=== PATIENT | male | born 1975 | race Caucasian/White ===

== ENCOUNTER 2019-11-23 14:23 | Outpatient (CLI) | payer OTHER, SELFPAY ==
--- NOTE | 2019-11-23 14:33 | XR_ITS ---
WS: [id number] CHEST 2 VIEWS HISTORY: TOBACCO USE, COUGH, DYSPNEA COMPARISON: 09/03/2019 Lungs: Mild pulmonary hyperexpansion. Mild biapical pleural thickening is similar to prior studies. N o pneumonia. Improved aeration at the LEFT lung base. Cardiac size: Normal. Mediastinum/Aorta: Normal mediastinum. Bones: Normal. XR/XR chest 2V* [id number] IMPRESSION: 1. Chronic emphysema. 2. Resolved LEFT lower lobe pneumonitis.
== END 2019-11-23 14:24 | disposition home or self-care (01) ==
LOC: RADWPI 14:28
PROVIDERS: PCP Nurse Practitioner Family; Visit Provider Nurse Practitioner Family
DX: J43.9 Emphysema, unspecified (principal); R06.00 Dyspnea, unspecified; R05 Cough; F17.200 Nicotine dependence, unspecified, uncomplicated
CPT/HCPCS: 71046

== ENCOUNTER → 2020-09-10 18:18 | Outpatient (BNVA) | payer OTHER, SELFPAY | PROVIDERS: PCP Nurse Practitioner Family; Visit Provider Family Medicine | DX: Z20.828 Contact with and (suspected) exposure to other viral communicable diseases (principal) | CPT/HCPCS: 87635 ==

== ENCOUNTER 2020-09-15 08:57 | Outpatient (CLI) | payer OTHER, SELFPAY ==
--- NOTE | 2020-09-15 09:15 | PFTS_ITS ---
Date of Study:09/15/20 Date of Dictation: MECHANICS: Forced vital capacity (FVC) is reduced. Forced expiratory volume in one second (FEV1) is reduced. FEV1/FVC is reduced. FLOW VOLUME LOOP: Reduced flow at all lung volumes. LUNG VOLUMES: Not measured DIFFUSING CAPACITY FOR CARBON MONOXIDE: Not measured. INTERPRETATION: The postbronchodilator spirometry is consistent with moderate airflow obstruction. There is a significant postbronchodilator response. Lung volumes and gas exchange were not measured. MTDD
== END 2020-09-15 08:58 | disposition home or self-care (01) ==
LOC: RT 08:58
PROVIDERS: PCP Nurse Practitioner Family; Visit Provider Family Medicine
DX: R06.00 Dyspnea, unspecified (principal)
CPT/HCPCS: 94060; J7611

== ENCOUNTER 2020-11-14 09:36 | Outpatient (CLI) | payer OTHER, SELFPAY ==
--- NOTE | 2020-11-14 09:49 | CT_ITS ---
WS: [id number] CT NECK WITHOUT CONTRAST. HISTORY: Shortness of breath TECHNIQUE: Contiguous 5 mm axial images are performed through the neck without intravenous contrast. Sagittal and coronal reformats are also submitted. All CT scans at [facility] use at leas t one of these dose optimization techniques: automated exposure control; mA and/or kV adjustment per patient size (includes targeted exams where dose is matched to clinical indication); or iterative rec onstruction. CONTRAST: CONTRAST: None DLP: 2407.45 mGycm COMPARISON: 02/24/2016 No narrowing or strictures noted within the oropharynx or nasopharynx or through the hypopharynx or l arynx. Subglottic airway is normal. Visualized trachea is normal caliber. Nasopharynx, oropharynx, hypopharynx and larynx are unremarkable. No soft tissue masses or abnormal e nhancement. Torus tubarius and fossa of Rosenmuller and parapharyngeal fat are normal. Numerous small benign cervical chain lymph nodes. No enlarged lymph nodes. The appearance of the lymp h nodes is similar to the prior study of 02/24/2016. Thyroid gland and salivary glands are normally enhancing with no masses. No osseous abnormalities. Visualized portions of the skull base demonstrate no abnormalities. Orbits and globes are within norm al limits. No soft tissue masses. Visualized paranasal sinuses and mastoid air cells are normal. Lung apices are clear. CT/CT neck wo con [id number] IMPRESSION: 1. No strictures or narrowing of the airway from the nasopharynx through the t rachea. 2. Numerous subcentimeter cervical chain lymph nodes. No enlargement or change in size since 02/24/2016.
--- NOTE | 2020-11-14 10:00 | CT_ITS ---
WS: [id number] CT CHEST WITHOUT INTRAVENOUS CONTRAST HISTORY: Shortness of breath TECHNIQUE: Contiguous 5 mm axial imaging performed on the thorax. Coronal and sagittal reformats are submitted. All CT scans at [facility] use at least one of these dose optimization techniq ues: automated exposure control; mA and/or kV adjustment per patient size (includes targeted exams wh ere dose is matched to clinical indication); or iterative reconstruction. CONTRAST: None DLP: 613.9 mGycm COMPARISON: None available. Lungs and central airway: Biapical pleural thickening and fibrosis. Micronodule superior RIGHT apex. Subpleural nodule measuring 2 mm anterior RIGHT upper lobe. There are several subpleural micronodules present bilaterally. 6 mm noncalcified nodule along the minor fissure. 4 mm noncalcified nodule RIGH T middle lobe, image 37 of series 3. Pleura: Normal. No pleural effusion. Heart and pericardium: Normal size heart with no pericardial effusion. Mediastinum and sonny: Benign appearing axillary mediastinal lymph nodes. No adenopathy identified on this unenhanced study. Vessels: Normal size aortic and pulmonary artery. No coronary artery calcifications. Chest wall and lower neck: No soft tissue masses. Upper abdomen: Negative. Osseous structures: No destructive process. CT/CT chest wo con [id number] IMPRESSION: 1. Chronic emphysema. No pneumonia. 2. Multiple micronodules and a few scattered 4 to 6 mm nodules. The largest no dule along the RIGHT minor fissure and in the RIGHT middle lobe. Recommend foll ow-up chest CT in 6-12 months.
== END 2020-11-14 09:37 | disposition home or self-care (01) ==
LOC: RADWPI 09:38
PROVIDERS: PCP Nurse Practitioner Family; Visit Provider Internal Medicine Critical Care Medicine
DX: R06.02 Shortness of breath (principal); J43.9 Emphysema, unspecified; R91.8 Other nonspecific abnormal finding of lung field
CPT/HCPCS: 70490; 71250

== ENCOUNTER → 2020-11-26 13:05 | Outpatient (BNVA) | payer OTHER, SELFPAY | PROVIDERS: PCP Nurse Practitioner Family | DX: Z20.828 Contact with and (suspected) exposure to other viral communicable diseases (principal) | CPT/HCPCS: 87635 ==

== ENCOUNTER 2022-01-11 09:58 | Outpatient (CLI) | payer OTHER, SELFPAY ==
--- NOTE | 2022-01-11 10:30 | CT_ITS ---
WS: [id number] CT CHEST TECHNIQUE: Noncontrast CT of the chest with coronal and sagittal reformatted images. CLINICAL INFORMATION: Lung Nodule COMPARISON: CT November 14, 2020 DLP: 585.[address] scans at [facility] use at least one of these dose optimization techniques: automated e xposure control; mA and/or kV adjustment per patient size (includes targeted exams where dose is matc hed to clinical indication); or iterative reconstruction. FINDINGS: Stable slightly hazy opacity RIGHT upper lobe measuring 3.7 mm unchanged from previous. A few adjacen t tiny satellite nodules unchanged from previous. Additional small hazy groundglass opacity in the RI GHT upper lobe measuring 5 mm is unchanged. Fibrosis in the lung apices. Tiny nodule LEFT upper lobe measuring 2.5 mm. Nodularity along the LEFT fissure is unchanged. Noncontrast thoracic aorta is normal. No mediastinal or hilar lymphadenopathy. No axillary lymphadeno bebo. Adrenal glands are normal. CT/CT chest con [id number] IMPRESSION: 1. Previously described subcentimeter nodules are unchanged compared to Februa 2020. Recommend 12 month follow-up. 2. No acute pulmonary infiltrates. 3. No mediastinal or hilar lymphadenopathy. 4. No significant changes compared to previous.
== END 2022-01-11 09:59 | disposition home or self-care (01) ==
LOC: RAD 10:00
PROVIDERS: PCP Nurse Practitioner Family; Visit Provider Internal Medicine Critical Care Medicine
DX: R91.1 Solitary pulmonary nodule (principal); R06.02 Shortness of breath; J44.1 Chronic obstructive pulmonary disease with (acute) exacerbation
CPT/HCPCS: 71250

== ENCOUNTER 2022-01-19 14:37 | Outpatient (CLI) | payer OTHER, SELFPAY ==
--- NOTE | 2022-01-19 14:47 | USCV_ITS ---
Gerry Frank Age: 46 Gender: M : 1975 Exam Date: 01/19/2022 14:56 Ordering Phys: Joshua Murray MD Technologist: LUISA [place] [facility] [place]: left carotid bruit Risk Factors: Previous Vascular Surgery: Right Brachial BP: / Left Brachial BP: / Right Left Velocity (cm/s) Spectral Plaque Velocity (cm/s) Spectral Plaque Syst/Diast Broadening Syst/Diast Broadening 81.00/ 13.50 Prox CCA 155.60/ 39.60 124.60/28.70 Mid CCA 86.60 / 27.30 88.60/ 30.30 Distal CCA 80.50 / 32.00 100.80/42.70 Prox ICA 102.50/ 38.60 114.70/38.60 Mid ICA 118.00/ 49.60 120.20/32.00 Distal ICA 122.40/ 52.90 91.40 ECA 122.40 0.92 ICA/CCA 1.36 Antegrade Vertebral Antegrade 77.20/ 25.40 cm/s 88.20/ 29.80 cm/s Tri Subclavian Tri 141.1 110.3 0 0 FINDINGS Comparison: none available. Mild intimal thickening throughout the common carotid arteries and extending through the bifurcation. No significant elevation of systolic or diastolic velocities. Waveforms are normal. Antegrade vertebral arteries. CONCLUSIONS Bilateral ICA stenosis less than 50%. Mild carotid atherosclerosis. Dr. Kacy Minor DO (Electronically Signed) Final Date: 19 January 2022 15:22 S
== END 2022-01-19 14:38 | disposition home or self-care (01) ==
PROVIDERS: PCP Nurse Practitioner Family; Visit Provider Family Medicine
DX: R09.89 Other specified symptoms and signs involving the circulatory and respiratory systems (principal); I65.23 Occlusion and stenosis of bilateral carotid arteries
CPT/HCPCS: 93880

== ENCOUNTER 2022-07-05 08:50 | Outpatient (CLI) | payer OTHER, SELFPAY ==
--- NOTE | 2022-07-05 08:59 | MR_ITS ---
WS: [id number] MRI BRAIN WITH AND WITHOUT CONTRAST HISTORY: MEMORY LOSS/DIZZINESS/HEADACHE COMPARISON: None available. TECHNIQUE: Multiplanar imaging performed through the brain with MultiHance 16 ml's IV. No acute infarcts are seen. Mistry-white matter differentiation is well preserved. No prior ischemic ev ent. No susceptibility artifacts or prior lacunar infarcts. Ventricles and extra-axial spaces are normal. Clivus and pituitary gland are normal. Visualized posterior fossa and brainstem are also normal. Postcontrast images are negative for masses or vascular malformations. Dural venous sinuses are normal. Paranasal sinuses: Well aerated with no significant disease. Mastoid air cells: Normal. Calvarium and scalp: Normal. MR/MR head wo/w con [id number] IMPRESSION: 1. Normal MRI brain with contrast. 2. No enhancing masses, volume loss or infarcts.
[2022-07-05] MEDS: gadobenate dimeglumine 20 mL vial IV (09:46)
== END 2022-07-05 08:51 | disposition home or self-care (01) ==
LOC: RAD 08:51
PROVIDERS: PCP Family Medicine; Visit Provider Nurse Practitioner Acute Care
DX: R42 Dizziness and giddiness (principal); R51.9 Headache, unspecified; R41.3 Other amnesia
CPT/HCPCS: 70553

== ENCOUNTER 2023-01-27 20:00 | Outpatient (CLI) | payer OTHER, SELFPAY | END 2023-01-27 20:01 | disposition home or self-care (01) | LOC: SLEEP 01-28 04:23 | PROVIDERS: PCP Family Medicine; Visit Provider Physician Assistant Medical | DX: G47.33 Obstructive sleep apnea (adult) (pediatric) (principal); Z78.9 Other specified health status | CPT/HCPCS: 95810 ==

== ENCOUNTER 2023-04-15 15:30 | Outpatient (CLI) | payer OTHER, SELFPAY ==
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
--- NOTE | 2023-04-15 16:00 | CTR_ITS ---
PROCEDURE INFORMATION: Exam: CT Chest Without Contrast; Diagnostic Exam date and time: 04/15/2023 3:40 PM Age: 47 years old Clinical indication: Abnormal findings; Abnormal radiologic exam of lung or chest; Additional info: F/u long nodules TECHNIQUE: Imaging protocol: Diagnostic computed tomography of the chest without contrast. Radiation optimization: All CT scans at this facility use at least one of these dose optimization techniques: automated exposure control; mA and/or kV adjustment per patient size (includes targeted exams where dose is matched to clinical indication); or iterative reconstruction. REPORTING DATA: Count of CT and Cardiac NM exams in prior 12 months: This patient has received 0 known CTs and 0 known cardiac nuclear medicine studies in the 12 months prior to the current study. COMPARISON: CT chest wo con [id number] 01/11/2022 10:16 AM RADIATION DOSE METRICS: Total DLP (mGy-cm): 196.49 FINDINGS: Lungs: Biapical pleuroparenchymal fibrosis again seen, similar to prior exam. Pleural spaces: Unremarkable. No pneumothorax. No pleural effusion. Heart: Negative for coronary artery atherosclerotic calcifications. Lymph nodes: Unremarkable. No enlarged lymph nodes. Vasculature: Unremarkable. No aortic aneurysm. Bones/joints: Unremarkable. No acute fracture. Soft tissues: Unremarkable. CT/CT chest wo con [id number] IMPRESSION: 1. Negative for concerning pulmonary nodule, previously described pulmonary nodules are not appreciated on this exam. 2. Biapical pleuroparenchymal fibrosis again seen, similar to prior exam.
== END 2023-04-15 15:31 | disposition home or self-care (01) ==
PROVIDERS: PCP Family Medicine; Visit Provider Internal Medicine Pulmonary Disease
DX: R91.1 Solitary pulmonary nodule (principal); M54.14 Radiculopathy, thoracic region; M54.16 Radiculopathy, lumbar region
CPT/HCPCS: 71250; 72072; 72100; 80053; 80061; 85025; 85651; 86038; 86141; 86431

== ENCOUNTER 2023-05-19 06:55 | Outpatient (CLI) | payer OTHER, SELFPAY ==
--- NOTE | 2023-05-19 07:15 | MR_ITS ---
WS: [id number] MRI LUMBAR SPINE NONCONTRAST TECHNIQUE: Sagittal T1, T2 and STIR imaging. Axial T1 and T2 imaging. CLINICAL INFORMATION: Lumbar radiculopathy COMPARISON: MRI 2018 FINDINGS: Mild lumbar curve. No acute compression. No high-grade central canal stenosis. L1-L2: Mild annular bulging progressed compared to 2018. Slight effacement of the ventral thecal sac. Spinal canal and foramen are patent. Tiny right foraminal protrusion slightly contacts exiting right L1 nerve root. Recommend correlation for right L1 nerve root symptoms. This appears progressed margaret red to previous L2-L3: Normal. L3-L4: Tiny right foraminal protrusion with with slight encroachment on the exiting right L3 nerve ro ot. Spinal canal and left foramen are patent. Mild facet arthropathy. L4-L5: Mild annular bulging. Mild facet arthropathy. Spinal canal and foramen are patent. L5-S1: Mild annular bulging. Tiny annular fissure eccentric to the left. Spinal canal and foramen are patent. Mild facet arthropathy. Tiny right renal cyst. Visualized pelvic bony structures: Normal. Paravertebral soft tissues: Normal. IMPRESSION: 1. Mild lumbar curve. No acute compression. No high-grade central canal stenosis. 2. Mild disc bulging L1-2 with a tiny right foraminal protrusion slightly contacts the exiting right L1 nerve root. 3. Tiny right proximal foraminal protrusion L3-4 slightly encroaches on the exiting right L3 nerve r oot. 4. Mild annular bulge L4-5 with slight effacement of the ventral thecal sac. 5. Tiny left eccentric annular fissure L5-S1. 6. Mild facet arthropathy L3-L5.
== END 2023-05-19 06:56 | disposition home or self-care (01) ==
PROVIDERS: PCP Family Medicine; Visit Provider Family Medicine
DX: M54.16 Radiculopathy, lumbar region (principal)
CPT/HCPCS: 72148

== ENCOUNTER 2023-11-09 18:50 | Emergency (ER) | payer OTHER, SELFPAY ==
--- NOTE | 2023-11-09 18:54 | ECG_ITS ---
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 Measurements Intervals [place] Rate: 53 P: 0 [place]: 0 QRS: 56 QRSD: 92 T: -45 QT: 439 QTc: 415 Interpretive Statements SUPRAVENTRICULAR BRADYCARDIA LEFT VENTRICULAR HYPERTROPHY AND ST-T CHANGE [VOLTAGE CRITERIA PLUS ST/T ABNORMALITY] POSSIBLE ANTERIOR MYOCARDIAL INFARCTION , PROBABLY OLD [30 ms Q WAVE IN V3/V4, OR R < 0.2 mV IN V4] No previous ECG available for comparison Electronically Signed On 11-10-2023 11:39:09 SAILOR by Jason Conner M.D. [id number]
[2023-11-09 18:55] VITALS: BP 175/69; PULSE 57; RESP 18; TEMP 36.4; O2SAT 96
--- NOTE | 2023-11-09 18:55 | XRR_ITS ---
PROCEDURE INFORMATION: Exam: XR Chest Exam date and time: 11/09/2023 7:26 PM Age: 47 years old Clinical indication: Shortness of breath; Additional info: SOB TECHNIQUE: Imaging protocol: Radiologic exam of the chest. Views: 1 view. COMPARISON: CT chest con [id number] 04/15/2023 3:40 PM FINDINGS: Lungs: Unremarkable. No consolidation. Pleural spaces: Unremarkable. No pleural effusion. No pneumothorax. Heart/Mediastinum: Unremarkable. No cardiomegaly. Bones/joints: Unremarkable. XR/XR chest 1V portable [id number] IMPRESSION: No acute findings.
--- NOTE | 2023-11-09 19:18 | ED_ITS ---
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 States he feels like his albuterol nebulizer does not work well at home has not been using it much. He is scheduled to see his client account assistant on the . Associated symptoms: Deny abdominal pain, chest pain, fever(s), nausea or vomiting Review of Systems 2 Const: Denies: fever(s), chills, body aches or change in appetite ENMT: Denies: throat pain or dental pain Card: Denies: chest pain Resp: Reports: dyspnea, non-productive cough and wheezing GI: Denies: abdominal pain, nausea, vomiting or diarrhea : Denies: dysuria Musc: Denies: neck pain or back pain Skin/Breast: Denies: rash Neuro: Denies: headache(s) PFSH ED 2 PFSH: Medical History Hypothyroidism Chronic back pain Hyperlipemia COPD (chronic obstructive pulmonary disease) Emphysema, unspecified Rheumatoid arthritis Surgical History H/O eye surgery H/O sinus surgery History of thyroid surgery History of placement of ear tubes History of carpal tunnel surgery History of back surgery Family History Grandfather Cancer Melanoma Family/Other Lung disease COPD Grandmother Lung disease COPD Social History Smoking and tobacco/nicotine status: current every day tobacco/nicotine user cigarettes Packs smoked per day: 1 Years cigarettes smoked: 31 [ Other cigarette details: Used chewing tobacco from age [age] - Hx of 1.5 PPD x 31 Years] Quit status (tobacco/nicotine): considering quitting Alcohol intake: former Substance/Drug Use: never Lives independently: Yes Household members: spouse Marital status: Current occupational status: employed Current occupation: [employer] Current occupational exposures/hazards: Yes (Hose Dust) Do you think of yourself as: Straight/Heterosexual Current gender identity: Male Physical Exam 2 Const: COMMON NORMALS: no acute distress, patient oriented x3 and healthy appearing HENMT: COMMON NORMALS: normocephalic and atraumatic HEAD & SCALP: n ormocephalic and atraumatic Neck/C-Spine: COMMON NORMALS: full ROM and supple Chest: COMMONS NORMALS: normal inspection of the chest and normal palpation of entire chest wall Resp: COMMON NORMALS: normal respiratory effort, No retractions and No use of accessory muscles AUSCULTATION: wheezes Cardio: COMMON NORMALS: regular rate, regular rhythm and No murmurs present (Cardio) RATE: regular rate RHYTHM: regular rhythm Extremity: COMMON NORMALS: normal to inspection and full ROM Neuro: COMMON NORMALS: patient oriented x3, moves all extremities and no focal motor deficits Psych: COMMON NORMALS: mental status grossly normal, Normal thought process present and cooperative THOUGHT PROCESS: Normal thought process present Skin: COMMON NORMALS: no rashes or lesions noted and no wounds GENERAL SKIN EXAM: no rashes or lesions noted Course 2 Vital Signs: Vital signs: Vital Signs Temperature 97.5 F L 11/09/23 18:55 Pulse Rate 63 11/09/23 20:51 Respiratory Rate 18 11/09/23 18:55 Blood Pressure 173/91 11/09/23 20:51 Pulse Oximetry 96 11/09/23 20:51 Oxygen Delivery Me thod Room Air 11/09/23 20:51 MDM - SOB/Dyspnea Medical Decision Making Patient presents here with cough and dyspnea likely from COPD exacerbation feels improved after breathing treatment did give him Decadron his troponin EKG is normal no signs of ACS no signs of pulmonary embolism he is stable for discharge he is to follow-up with client account assistant as scheduled the return if worsening. Medical Records I reviewed the patient's medical records. Lab Data I reviewed the patient's lab results. 11/09/23 19:12 11/09/23 19:12 Labs/Radiology: Radiology Impressions Chest X-Ray 11/09/23 18:55 IMPRESSION: No acute findings. Laboratory Results WBC 5.71 10^3/uL (3.29-11.43) 11/09/23 19:12 RBC 4.73 10^6/uL (3.85-5.65) 11/09/23 19:12 Hgb 14.40 g/dL (11.27-16.99) 11/09/23 19:12 Hct 42.0 % (37-53) 11/09/23 19:12 MCV 88.8 fl (82-101) 11/09/23 19:12 MCH 30.4 pg (27-33) 11/09/23 19:12 MCHC 34.3 g/dL (30-55) 11/09/23 19:12 RDW 12.7 % (12.1-15.1) 11/09/23 19:12 Plt Count 216 10^3/cmm (157-399) 11/09/23 19:12 MPV 10.5 fL (7.4-10.4) H 11/09/23 19:12 Lymph % (Auto) Not Reportable 11/09/23 19:12 Meade % (Auto) Not Reportable 11/09/23 19:12 Lymph # (Auto) Not Reportable 11/09/23 19:12 [place]ade # (Auto) Not Reportable 11/09/23 19:12 Total Counted 100 (0-100) 11/09/23 19:12 Atypical Lymphs % 6.0 % (0-5) H 11/09/23 19:12 Segmented Neutrophils 34 % 11/09/23 19:12 Abs Segm Neuts (Man) 1.9 10/cmm (1.6-7.1) 11/09/23 19:12 Band Neutrophils Not Reportable 11/09/23 19:12 Absolute Lymphocytes 3.4 10^3/cmm (1.2-3.4) 11/09/23 19:12 Lymphocytes (Manual) 54 % 11/09/23 19:12 Monocytes (Manual) 5.0 % 11/09/23 19:12 Absolute Monocytes 0.3 10^3/cmm (0.1-0.6) 11/09/23 19:12 Eosinophils (Manual) 1 % 11/09/23 19:12 Absolute Eosinophils 0.1 10^3/cmm (0.0-0.7) 11/09/23 19:12 Basophils (Manual) 0.0 % 11/09/23 19:12 Absolute Basophils 0.0 10^3/cmm (0.0-0.2) 11/09/23 19:12 Platelet Estimate Normal (Normal) 11/09/23 19:12 Sodium 138 mmol/L (136-145) 11/09/23 19:12 Potassium 3.3 mmol/L (3.5-5.1) L 11/09/23 19:12 Chloride 101 mmol/L (98-107) 11/09/23 19:12 Carbon Dioxide 26 mmol/L (22-29) 11/09/23 19:12 Anion Gap 14.3 (5-19) 11/09/23 19:12 BUN 11 mg/dL (6-20) 11/09/23 19:12 Creatinine 0.8 mg/dL (0.7-1.2) 11/09/23 19:12 GFR Calculation 103.2 mL/min (90-130) 11/09/23 19:12 Glucose 103 mg/dL (65-115) 11/09/23 19:12 Calculated Osmolality 286 mOsm/kg (285-295) 11/09/23 19:12 Calcium 8.5 mg/dL (8.5-10.5) 11/09/23 19:12 Total Bilirubin 0.3 mg/dL (0.15-1.2) 11/09/23 19:12 AST 43 U/L (0-40) H 11/09/23 19:12 ALT 36 U/L (0-41) 11/09/23 19:12 Alkaline Phosphatase 75 U/L (40-130) 11/09/23 19:12 Troponin T Baseline 8 ng/L (0-15) 11/09/23 19:12 NT-Pro-B Natriuret Pep 111 pg/mL (0-125) 11/09/23 19:12 Total Protein 7.0 g/dL (6.6-8.7) 11/09/23 19:12 Albumin 4.2 g/dL (3.5-5.2) 11/09/23 19:12 Globulin 2.8 g/dL (1.3-4.6) 11/09/23 19:12 All radiology interpretation(s) finalized by discharge EKG Data EKG 1: I personally reviewed and interpreted this EKG as follows: EKG Interpretation Date: 11/09/23 EKG interpretation time: 19:06 Interpretation: nsr hr [address] or t wave abnormalities qrs 92 qtc 423 Discharge Plan Discharge Patient Disposition: Home Clinical Impression: Acute exacerbation of chronic obstructive airways disease Condition: Stable Prescriptions: No Action albuterol sulfate 2.5 mg /3 mL (0.083 %) solution for nebulization 2.5 mg inhalation Q6H PRN (Reason: shortness of breath or wheezing) triamcinolone acetonide 0.5 % cream 1 applic topical TID PRN azelastine 137 mcg (0.1 %) aerosol,spray 1 spray intranasal BID 30 Days Qty: 30 4RF Rx Instructions: administer into each nostril albuterol sulfate [ProAir HFA] 90 mcg/actuation HFA aerosol inhaler 2 puff inhalation Q6H PRN (Reason: shortness of breath or wheezing) Qty: 8.5 2RF lisinopril 5 mg tablet 5 mg PO DAILY Qty: 90 3RF fluticasone propionate 50 mcg/actuation spray,suspension See Rx Instructions .ROUTE .COMPLEX Qty: 48 3RF Dose Instruction: SHAKE LIQUID AND USE 1 SPRAY IN EACH NOSTRIL EVERY 12 HOURS Rx Instructions: SHAKE LIQUID AND USE 1 SPRAY IN EACH NOSTRIL EVERY 12 HOURS lovastatin 10 mg tablet See Rx Instructions .ROUTE .COMPLEX Qty: 90 3RF Dose Instruction: TAKE 1 TABLET BY MOUTH ONCE DAILY AT NIGHT Rx Instructions: TAKE 1 TABLET BY MOUTH ONCE DAILY AT NIGHT piroxicam 20 mg capsule 20 mg PO DAILY Qty: 90 2RF gabapentin 300 mg capsule See Rx Instructions .ROUTE .COMPLEX Qty: 180 3RF Dose Instruction: TAKE 2 CAPSULES BY MOUTH THREE TIMES DAILY Rx Instructions: TAKE 2 CAPSULES BY MOUTH THREE TIMES DAILY Stiolto Respimat 2.5-2.5 mcg/actuation mist 2 puff inhalation DAILY Qty: 4 0RF tizanidine 4 mg tablet See Rx Instructions .ROUTE .COMPLEX Qty: 90 2RF Dose Instruction: Take 1 tablet by mouth three times daily as needed for muscle spasm Rx Instructions: Take 1 tablet by mouth three times daily as needed for muscle spasm levothyroxine 50 mcg tablet See Rx Instructions .ROUTE .COMPLEX Qty: 90 2RF Dose Instruction: Take 1 tablet by mouth once daily Rx Instructions: Take 1 tablet by mouth once daily Discharge Orders: Discharge ED (Routine); Ordered 11/09/23 Ordered By: Chani Cottrell Referrals: Joshua Murray MD [Primary Care Provider] - 4-7 days Discharge Diet: Advance as tolerated Discharge Activity: Resume usual activity Patient Instructions: COPD (Chronic Obstructive Pulmonary Disease) (ED) Coding Level of Care Code ED Child And Adolescent Psychologist for [facility] [place]
[2023-11-09 19:19] LABS: Mean Corpuscular HGB Conc 34.3 g/dL (30-55); Mean Corpuscular Hemoglobin 30.4 pg (27-33); Mean Corpuscular Volume 88.8 fl (82-101); Mean Platelet Volume 10.5 fL (7.4-10.4); Platelet Count 216 10^3/cmm (157-399); Red Blood Count 4.73 10^6/uL (3.85-5.65); Red Cell Distribution Width 12.7 % (12.1-15.1); White Blood Count 5.71 10^3/uL (3.29-11.43)
[2023-11-09] MEDS: dexamethasone 10 mg/mL INJ IVP (19:35)
[2023-11-09 19:45] LABS: Alanine Aminotransferase 36 U/L (0-41); Albumin Level 4.2 g/dL (3.5-5.2); Alkaline Phosphatase 75 U/L (40-130); Anion Gap 14.3 (5-19); Aspartate Amino Transferase 43 U/L (0-40); Blood Urea Nitrogen 11 mg/dL (6-20); Calcium 8.5 mg/dL (8.5-10.5); Carbon Dioxide 26 mmol/L (22-29); Chloride 101 mmol/L (98-107); Globulin 2.8 g/dL (1.3-4.6); Glomerular Filtration Rate 103.2 mL/min (90-130); Glucose 103 mg/dL (65-115); NT Pro B Type Natriuretic Pept 111 pg/mL (0-125); Osmolality Calculated 286 mOsm/kg (285-295); Potassium 3.3 mmol/L (3.5-5.1); Sodium 138 mmol/L (136-145); Total Bilirubin 0.3 mg/dL (0.15-1.2)
[2023-11-09 19:59] LABS: Slide Review Slide Review Perform
[2023-11-09 20:03] LABS: Absolute Eosinophils 0.1 10^3/cmm (0.0-0.7); Absolute Segmented Neutrophil 1.9 10/cmm (1.6-7.1); Eosinophils 1 %; Lymphocytes 54 %; Monocytes Absolute 0.3 10^3/cmm (0.1-0.6); Segmented Neutrophils 34 %; Total Cells Counted 100 (0-100)
[2023-11-09 20:04] LABS: Lymphocytes Absolute 3.4 10^3/cmm (1.2-3.4); Platelet Estimate Normal (Normal)
--- NOTE | 2023-11-09 20:04 | ECG_ITS ---
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 [id number]
[2023-11-09] MEDS: hyDRALAzine 20 mg/mL INJ 1 mL 10 MG IVP (20:14)
[2023-11-09 20:51] VITALS: BP 173/91; PULSE 63; O2SAT 96
[2023-11-09 20:51] LABS: Troponin(5th) Baseline 8 ng/L (0-15)
[2023-11-09 21:00] VITALS: BP 168/94; PULSE 59; O2SAT 98
== END 2023-11-09 21:12 | disposition home or self-care (01) ==
PROVIDERS: Emergency Provider Emergency Medicine; PCP Family Medicine
DX: J44.1 Chronic obstructive pulmonary disease with (acute) exacerbation (principal); F17.210 Nicotine dependence, cigarettes, uncomplicated; E78.5 Hyperlipidemia, unspecified
CPT/HCPCS: 36415; 71045; 80053; 83880; 84484; 85007; 85025; 93005; 96374; 96375; 99285; J0360; J1100

== ENCOUNTER → 2023-12-08 07:40 | Outpatient (BNVA) | payer OTHER, SELFPAY | PROVIDERS: PCP Family Medicine; Visit Provider Orthopaedic Surgery | DX: M54.50 Low back pain, unspecified; G89.29 Other chronic pain | CPT/HCPCS: 72110 ==

== ENCOUNTER 2023-12-13 12:53 | Emergency (ER) | payer OTHER, SELFPAY ==
[2023-12-13 13:09] VITALS: BP 131/87; PULSE 70; RESP 14; TEMP 36.7; O2SAT 96
--- NOTE | 2023-12-13 13:37 | ED_ITS ---
HPI - Back Pain/Injury 2 General: Chief Complaint: Back Pain/Injury Stated Complaint: back pain Time Seen by Provider: 12/13/23 13:36 History of Present Illness: Patient presents to the ER with complaints of back pain that radiates up into his epigastric and anterior lower rib area. Patient says his back pain has been bothering him for about 12 years but this time it was worse and has made him nauseous. Patient has seen Dr. Hernandez and is in the process given an MRI and surgery approved. Patient has no recent trauma, and is on no pain medicine other than gabapentin piroxicam and tizanidine Review of Systems 2 General: Reports: 10 or more systems reviewed and unremarkable except in HPI and below PFSH ED 2 PFSH: Medical History Hypothyroidism Chronic back pain Hyperlipemia COPD (chronic obstructive pulmonary disease) Emphysema, unspecified Rheumatoid arthritis Surgical History H/O eye surgery H/O sinus surgery History of thyroid surgery History of placement of ear tubes History of carpal tunnel surgery History of back surgery Family History Grandfather Cancer Melanoma Family/Other Lung disease COPD Grandmother Lung disease COPD Social History Smoking and tobacco/nicotine status: current every day tobacco/nicotine user cigarettes Packs smoked per day: 1 Years cigarettes smoked: 31 [ Other cigarette details: Used chewing tobacco from age [age] - Hx of 1.5 PPD x 31 Years] Quit status (tobacco/nicotine): considering quitting Alcohol intake: former Substance/Drug Use: never Lives independently: Yes Household members: spouse Marital status: Current occupational status: employed Current occupation: [employer] Current occupational exposures/hazards: Yes (Hose Dust) Do you think of yourself as: Straight/Heterosexual Current gender identity: Male Physical Exam 2 Const: COMMON NORMALS: no acute distress, average body habitus, patient oriented x3, no limitations, healthy appearing, alert and well nourished HENMT: COMMON NORMALS: normocephalic, atraumatic, hearing grossly normal bilaterally, external ears normal, Normal external nose present, moist oral mucous membranes and oropharynx normal HEAD & SCALP: normocephalic and atraumatic NOSE: Normal external nose present EXTERNAL EAR: Yes external ears normal Neck/C-Spine: COMMON NORMALS: no JVD Chest: COMMONS NORMALS: normal inspection of the chest and normal palpation of entire chest wall Resp: COMMON NORMALS: normal respiratory effort, No retractions, No use of accessory muscles and clear to auscultation bilaterally AUSCULTATION: clear to auscultation bilaterally Cardio: COMMON NORMALS: no JVD, regular rate, regular rhythm, S1 normal heart sound present, S2 normal heart sound present, No gallops present (Cardio), No clicks present (Cardio), No murmurs present (Cardio) and No rub (Cardio) R ATE: regular rate RHYTHM: regular rhythm HEART SOUNDS: S1 normal heart sound present and S2 normal heart sound present GI: COMMON NORMALS: Normal to inspection, nondistended, normoactive bowel sounds present, Soft to palpation, No hepatosplenomegaly present and no masses; negative for non-tender (Tender to palpate upper quadrants right and left.) P ALPATION: Yes Soft to palpation and Yes No hepatosplenomegaly present Neuro: COMMON NORMALS: patient oriented x3 SENSORIUM/ORIENTATION: Yes alert Course 2 Vital Signs: Vital signs: Vital Signs Temperature 98.1 F 12/13/23 13:09 Pulse Rate 70 12/13/23 13:09 Respiratory Rate 14 12/13/23 13:09 Blood Pressure 131/87 12/13/23 13:09 Pulse Oximetry 96 12/13/23 13:09 Oxygen Delivery Me thod Room Air 12/13/23 13:09 MDM - Back Pain/Injury Medical Decision Making Patient was given Toradol and Norflex while we wait for lab work to come back. Lab work was essentially unremarkable. Patient said his pain is feeling better patient will be discharged on hydrocodone and prednisone. Patient should follow-up with his PCP within next 7 days. Differential Diagnosis Unlikely lumbar radiculopathy, sciatica, strain of lumbar region, renal colic, pyelonephritis, thoracic back pain, AAA or discitis Medical Records I reviewed the patient's medical records. Labs I reviewed the patient's lab results. 12/13/23 14:12 12/13/23 14:12 Laboratory Results WBC 11.84 10^3/uL (3.29-11.43) H 12/13/23 14:12 RBC 3.67 10^6/uL (3.85-5.65) L 12/13/23 14:12 Hgb 11.40 g/dL (11.27-16.99) 12/13/23 14:12 Hct 33.8 % (37-53) L 12/13/23 14:12 MCV 92.1 fl (82-101) 12/13/23 14:12 MCH 31.1 pg (27-33) 12/13/23 14:12 MCHC 33.7 g/dL (30-55) 12/13/23 14: RDW 13.4 % (12.1-15.1) 12/13/23 14: Plt Count 346 10^3/cmm (157-399) 12/13/23 14:12 MPV 9.9 fL (7.4-10.4) 12/13/23 14:12 Neut % (Auto) 80.6 % 12/13/23 14:12 Lymph % (Auto) 14.4 % 12/13/23 14:12 [place] % (Auto) 3.5 % 12/13/23 14: Eos % (Auto) 0.7 % 12/13/23 14: Baso % (Auto) 0.4 % 12/13/23 14: Neut # (Auto) 9.53 10^3/uL (1.8-7.7) H 12/13/23 14:12 Lymph # (Auto) 1.7 10^3/uL (0.8-4.8) 12/13/23 14:12 [place] # (Auto) 0.4 10^3/uL (0.2-0.9) 12/13/23 14:12 Eos # (Auto) 0.1 10^3/uL (0.0-0.8) 12/13/23 14: Baso # (Auto) 0.1 10^3/uL (0.0-0.1) 12/13/23 14:12 Nucleated RBC % (auto) 0 % 12/13/23 14: Nucleated RBCs # 0.0 /100WBC 12/13/23 14:12 Sodium 142 mmol/L (136-145) 12/13/23 14:12 Potassium 3.5 mmol/L (3.5-5.1) 12/13/23 14:12 Chloride 106 mmol/L (98-107) 12/13/23 14:12 Carbon Dioxide 26 mmol/L (22-29) 12/13/23 14:12 Anion Gap 13.5 (5-19) 12/13/23 14:12 BUN 13 mg/dL (6-20) 12/13/23 14:12 Creatinine 0.6 mg/dL (0.7-1.2) L 12/13/23 14:12 GFR Calculation 143.2 mL/min (90-130) H 12/13/23 14:12 Glucose 104 mg/dL (65-115) 12/13/23 14:12 Calculated Osmolality 294 mOsm/kg (285-295) 12/13/23 14:12 Calcium 8.5 mg/dL (8.5-10.5) 12/13/23 14:12 Total Bilirubin 0.2 mg/dL (0.15-1.2) 12/13/23 14:12 AST 20 U/L (0-40) 12/13/23 14:12 ALT 12 U/L (0-41) 12/13/23 14:12 Alkaline Phosphatase 77 U/L (40-130) 12/13/23 14:12 Total Protein 6.8 g/dL (6.6-8.7) 12/13/23 14:12 Albumin 3.9 g/dL (3.5-5.2) 12/13/23 14:12 Globulin 2.9 g/dL (1.3-4.6) 12/13/23 14:12 Lipase 31 U/L (13-60) 12/13/23 14:12 All radiology interpretation(s) finalized by discharge Discharge Plan Discharge Patient Disposition: Home Clinical Impression: Thoracic back pain Condition: Stable Prescriptions: No Action albuterol sulfate 2.5 mg /3 mL (0.083 %) solution for nebulization 2.5 mg inhalation Q6H PRN (Reason: shortness of breath or wheezing) albuterol sulfate [ProAir HFA] 90 mcg/actuation HFA aerosol inhaler 2 puff inhalation Q6H PRN (Reason: shortness of breath or wheezing) Qty: 8.5 2RF lisinopril 5 mg tablet 5 mg PO DAILY Qty: 90 3RF piroxicam 20 mg capsule 20 mg PO DAILY Qty: 90 2RF Stiolto Respimat 2.5-2.5 mcg/actuation mist 2 puff inhalation DAILY Qty: 4 0RF tizanidine 4 mg tablet 4 mg PO TID PRN (Reason: Muscle Spasm) lovastatin 10 mg tablet 10 mg PO QPM levothyroxine 50 mcg tablet 50 mcg PO DAILY gabapentin 300 mg capsule 300 mg PO TID azelastine 137 mcg (0.1 %) aerosol,spray 1 spray intranasal BID PRN (Reason: allergies) Rx Instructions: administer into each nostril fluticasone propionate 50 mcg/actuation spray,suspension See Rx Instructions .ROUTE .COMPLEX PRN (Reason: allergies) Rx Instructions: SHAKE LIQUID AND USE 1 SPRAY IN EACH NOSTRIL EVERY 12 HOURS Discharge Orders: Discharge ED (Routine); Ordered 12/13/23 Ordered By: James Hurt Referrals: Joshua Murray MD [Primary Care Provider] - 1 week Patient Instructions: Opioid Safety, Pain Management, Chronic Back Pain (DC) Activity Restrictions/Additional Instructions: Please take all medicine as directed. Please follow-up with your family practitioner in the next 7 days for further evaluation and treatment. Coding Level of Care Code ED Lithography Contact Worker for [facility]on [facility]
[2023-12-13 14:22] LABS: Basophils # 0.1 10^3/uL (0.0-0.1); Basophils % 0.4 %; Eosinophils # 0.1 10^3/uL (0.0-0.8); Eosinophils % 0.7 %; Hematocrit 33.8 % (37-53); Lymphocytes # 1.7 10^3/uL (0.8-4.8); Lymphocytes % 14.4 %; Mean Corpuscular HGB Conc 33.7 g/dL (30-55); Mean Corpuscular Hemoglobin 31.1 pg (27-33); Mean Corpuscular Volume 92.1 fl (82-101); Mean Platelet Volume 9.9 fL (7.4-10.4); Monocytes # 0.4 10^3/uL (0.2-0.9); Monocytes % 3.5 %; Neutrophils # 9.53 10^3/uL (1.8-7.7); Neutrophils % 80.6 %; Nucleated Red Blood Cells % 0 %; Platelet Count 346 10^3/cmm (157-399); Red Blood Count 3.67 10^6/uL (3.85-5.65); Red Cell Distribution Width 13.4 % (12.1-15.1); White Blood Count 11.84 10^3/uL (3.29-11.43)
[2023-12-13 14:51] LABS: Alanine Aminotransferase 12 U/L (0-41); Albumin Level 3.9 g/dL (3.5-5.2); Alkaline Phosphatase 77 U/L (40-130); Anion Gap 13.5 (5-19); Aspartate Amino Transferase 20 U/L (0-40); Blood Urea Nitrogen 13 mg/dL (6-20); Calcium 8.5 mg/dL (8.5-10.5); Carbon Dioxide 26 mmol/L (22-29); Chloride 106 mmol/L (98-107); Creatinine Clr Calc Pharmacy 157.3179; Globulin 2.9 g/dL (1.3-4.6); Glomerular Filtration Rate 143.2 mL/min (90-130); Glucose 104 mg/dL (65-115); Lipase 31 U/L (13-60); Osmolality Calculated 294 mOsm/kg (285-295); Potassium 3.5 mmol/L (3.5-5.1); Sodium 142 mmol/L (136-145); Total Bilirubin 0.2 mg/dL (0.15-1.2); Total Protein 6.8 g/dL (6.6-8.7)
[2023-12-13] MEDS: orphenadrine 30 mg/mL Inj 2 mL 60 MG IM (15:00)
[2023-12-13] MEDS: ketorolac 60 mg/2 mL INJ IM (15:03)
[2023-12-13 16:13] VITALS: BP 104/50; PULSE 60; O2SAT 99
== END 2023-12-13 16:15 | disposition home or self-care (01) ==
PROVIDERS: Emergency Provider Emergency Medicine; PCP Family Medicine
DX: M54.6 Pain in thoracic spine (principal); F17.210 Nicotine dependence, cigarettes, uncomplicated; E78.5 Hyperlipidemia, unspecified; J44.9 Chronic obstructive pulmonary disease, unspecified
CPT/HCPCS: 36415; 80053; 83690; 85025; 96372; 99284; J1885; J2360

== ENCOUNTER 2023-12-16 14:21 | Outpatient (CLI) | payer OTHER, SELFPAY ==
--- NOTE | 2023-12-16 14:29 | XRR_ITS ---
PROCEDURE INFORMATION: Exam: XR Abdomen Exam date and time: 12/16/2023 2:44 PM Age: 48 years old Clinical indication: Patient HX: Fluid retention; Lower abdominal pain; Copd; Nausea; Urinary retention TECHNIQUE: Imaging protocol: Radiologic exam of the abdomen. Views: 2 Views. Upright and supine views. COMPARISON: CT abdomen pelvis w con* [id number] 09/03/2019 9:05 PM FINDINGS: Gastrointestinal tract: Normal. No bowel dilation. Normal stool amount. Intraperitoneal space: Normal. No free air. Bones/joints: Unremarkable for age. XR/XR acute abdomen series [id number] IMPRESSION: No acute findings.
== END 2023-12-16 14:22 | disposition home or self-care (01) ==
LOC: RAD 14:23
PROVIDERS: PCP Family Medicine; Visit Provider Family Medicine
DX: R10.30 Lower abdominal pain, unspecified (principal); R33.9 Retention of urine, unspecified
CPT/HCPCS: 74022

== ENCOUNTER → 2023-12-20 16:03 | Outpatient (BNVA) | payer OTHER, SELFPAY | PROVIDERS: PCP Family Medicine; Visit Provider Family Medicine | DX: R19.7 Diarrhea, unspecified (principal) | CPT/HCPCS: 87177; 87209 ==

== ENCOUNTER → 2023-12-22 11:54 | Outpatient (BNVA) | payer OTHER, SELFPAY | PROVIDERS: PCP Family Medicine; Visit Provider Family Medicine | DX: R10.9 Unspecified abdominal pain (principal) | CPT/HCPCS: 87045; 87177; 87209; 87427; 87449 ==

== ENCOUNTER 2023-12-26 16:26 | Outpatient (CLI) | payer OTHER, SELFPAY ==
[2023-12-26] MEDS: iohexol 350 mg/mL 500 mL Btl (per mL) PO (16:44)
--- NOTE | 2023-12-26 17:30 | CTR_ITS ---
PROCEDURE INFORMATION: Exam: CT Abdomen And Pelvis With Contrast Exam date and time: 12/26/2023 5:21 PM Age: 48 years old Clinical indication: Abdominal pain; Localized; Left lower quadrant (llq); Patient HX: Llq pain x 3-4 years, had intestinal worm in stool last week; Additional info: Abdominal pain llq TECHNIQUE: Imaging protocol: Computed tomography of the abdomen and pelvis with contrast. Radiation optimization: All CT scans at this facility use at least one of these dose optimization techniques: automated exposure control; mA and/or kV adjustment per patient size (includes targeted exams where dose is matched to clinical indication); or iterative reconstruction. Contrast material: OMNI 350; Contrast volume: 100 ml; Contrast route: INTRAVENOUS (IV); COMPARISON: CT abdomen pelvis w con* [id number] 09/03/2019 9:05 PM RADIATION DOSE METRICS: Total DLP (mGy-cm): 266.55 FINDINGS: Lungs: Subsegmental bibasilar atelectasis. The visualized lung bases are otherwise grossly clear. Diaphragm: No evidence of diaphragmatic defect. Liver: No focal hepatic lesion. Gallbladder and bile ducts: Unremarkable. No intra-hepatic or extra-hepatic biliary dilatation. Pancreas: Unremarkable. Spleen: Unremarkable. Adrenal glands: Unremarkable. Kidneys and ureters: There is a simple appearing right-sided renal cyst for which dedicated imaging follow-up is not required. Otherwise no evidence of renal parenchymal abnormality. No hydronephrosis or ureteral stone. Stomach and bowel: There is a gastric ulcer along the posterior aspect of the gastric antrum with surrounding inflammatory change concerning for impending perforation (image 21 of series 3). No evidence of bowel obstruction. Appendix: Normal appendix. Intraperitoneal space: No evidence of free air or fluid collection. Vasculature: No aneurysmal dilatation or dissection of the abdominal aorta. The celiac trunk, SMA and SEBASTIAN are grossly patent. No evidence of IVC thrombus. The portal vein, SMV and splenic veins are grossly patent. Lymph nodes: There are reactive nodes in the gastrohepatic region. Urinary bladder: Grossly unremarkable. Reproductive: Grossly unremarkable. Bones/joints: No evidence of acute fracture or aggressive osseous lesion. Soft tissues: No evidence of fluid collection or hematoma in the superficial soft tissues. CT/CT abdomen pelvis w con* [id number] IMPRESSION: 1. Gastric ulcer with findings concerning for impending perforation. Surgical evaluation is recommended.
[2023-12-26] MEDS: iohexol 350 mg/mL 500 mL Btl (per mL) IV (17:31)
== END 2023-12-26 16:27 | disposition home or self-care (01) ==
LOC: RAD 16:26
PROVIDERS: PCP Family Medicine; Visit Provider Family Medicine
DX: R10.9 Unspecified abdominal pain (principal); K25.9 Gastric ulcer, unspecified as acute or chronic, without hemorrhage or perforation
CPT/HCPCS: 74177; Q9967

== ENCOUNTER 2023-12-26 19:06 | Inpatient (IN) | payer OTHER, SELFPAY ==
[2023-12-26] VITALS (11 sets, daily range): BP systolic 95–162; BP diastolic 60–94; PULSE 60–81; RESP 13–23; TEMP 36.3; O2SAT 93–98; BMI 20.2
[2023-12-26 19:30] LABS: Basophils # 0.1 10^3/uL (0.0-0.1); Basophils % 0.5 %; Eosinophils # 0.2 10^3/uL (0.0-0.8); Eosinophils % 1.7 %; Hematocrit 36.3 % (37-53); Lymphocytes # 3.7 10^3/uL (0.8-4.8); Lymphocytes % 27.6 %; Mean Corpuscular HGB Conc 33.1 g/dL (30-55); Mean Corpuscular Hemoglobin 31.1 pg (27-33); Mean Platelet Volume 9.9 fL (7.4-10.4); Monocytes # 0.8 10^3/uL (0.2-0.9); Monocytes % 6.4 %; Neutrophils # 8.36 10^3/uL (1.8-7.7); Neutrophils % 63.3 %; Nucleated Red Blood Cells % 0 %; Platelet Count 417 10^3/cmm (157-399); Red Blood Count 3.86 10^6/uL (3.85-5.65); Red Cell Distribution Width 12.8 % (12.1-15.1); White Blood Count 13.21 10^3/uL (3.29-11.43)
--- NOTE | 2023-12-26 19:47 | ED_ITS ---
HPI - Abdominal Pain 2 General: Chief Complaint: Abdominal Pain Stated Complaint: jace sent ulcer Time Seen by Provider: 12/26/23 19:10 Source: patient Mode of arrival: ambulatory Limitations: no limitations History of Present Illness: 48-year-old male states he been having i ncreasing abdominal pain over the last 2 weeks. He states the pain is worsened over the last 2 days his pain is currently 9 out of [address] he had an outpatient CT done today that showed a gastric ulcer with concerns of impending rupture. States last time he vomited was a week ago. Denies any diarrhea. Associated Symptoms: Reports vomiting; Denies chills, diarrhea, fever(s) and nausea Review of Systems 2 Const: Denies: fever(s), chills, body aches or change in appetite ENMT: Denies: throat pain or dental pain Card: Denies: chest pain Resp: Denies: dyspnea GI: Reports: abdominal pain and vomiting; Denies: nausea or diarrhea Musc: Denies: neck pain or back pain Skin/Breast: Denies: rash Neuro: Denies: headache(s) PFSH ED 2 PFSH: Medical History Hypothyroidism Chronic back pain Hyperlipemia COPD (chronic obstructive pulmonary disease) Emphysema, unspecified Rheumatoid arthritis Surgical History H/O eye surgery H/O sinus surgery History of thyroid surgery History of placement of ear tubes History of carpal tunnel surgery History of back surgery Family History Grandfather Cancer Melanoma Family/Other Lung disease COPD Grandmother Lung disease COPD Social History Smoking and tobacco/nicotine status: current every day tobacco/nicotine user cigarettes Packs smoked per day: 1 Years cigarettes smoked: 31 [ Other cigarette details: Used chewing tobacco from age [age] - Hx of 1.5 PPD x 31 Years] Quit status (tobacco/nicotine): considering quitting Alcohol intake: former Substance/Drug Use: never Lives independently: Yes Household members: spouse Marital status: Current occupational status: employed Current occupation: [email or web address] Current occupational exposures/hazards: Yes (Hose Dust) Do you think of yourself as: Straight/Heterosexual Current gender identity: Male Physical Exam 2 Const: COMMON NORMALS: no acute distress, patient oriented x3 and healthy appearing HENMT: COMMON NORMALS: normocephalic and atraumatic HEAD & SCALP: n ormocephalic and atraumatic Eye: COMMON NORMALS: conjunctivae normal CONJUNCTIVA: Yes conjunctivae normal Neck/C-Spine: COMMON NORMALS: full ROM and supple Chest: COMMONS NORMALS: normal inspection of the chest and normal palpation of entire chest wall Resp: COMMON NORMALS: normal respiratory effort, No retractions, No use of accessory muscles and clear to auscultation bilaterally AUSCULTATION: clear to auscultation bilaterally Cardio: COMMON NORMALS: regular rate, regular rhythm and No murmurs present (Cardio) RATE: regular rate RHYTHM: regular rhythm GI: COMMON NORMALS: Normal to inspection, nondistended, normoactive bowel sounds present, Soft to palpation and no masses PALPATION: Yes Soft to palpation OTHER: Diffuse tenderness noted Extremity: COMMON NORMALS: normal to inspection and full ROM Neuro: COMMON NORMALS: patient oriented x3, moves all extremities and no focal motor deficits Psych: COMMON NORMALS: mental status grossly normal, Normal thought process present and cooperative THOUGHT PROCESS: Normal thought process present Skin: COMMON NORMALS: no rashes or lesions noted and no wounds GENERAL SKIN EXAM: no rashes or lesions noted Course 2 Vital Signs: Vital signs: Vital Signs Temperature 97.3 F L 12/26/23 19:24 Pulse Rate 81 12/26/23 19:24 Respiratory Rate 14 12/26/23 19:24 Blood Pressure 95/60 12/26/23 19:24 Pulse Oximetry 94 12/26/23 19:24 Oxygen Delivery Me thod Room Air 12/26/23 19:24 MDM - Abdominal Pain Medical Decision Making Patient presents here with abdominal pain he had a CT done outpatient did show gastric ulcer with inflammation concerns for impending rupture abdominal exam currently is benign he is not rigid patient was seen in the ER by surgeon to Dr. Marin will admit him on antibiotics along with PPI. Medical Records I reviewed the patient's medical records. Lab Data I reviewed the patient's lab results. 12/26/23 19:20 12/26/23 19:20 Labs/Radiology: Laboratory Results WBC 13.21 10^3/uL (3.29-11.43) H 12/26/23 19:20 RBC 3.86 10^6/uL (3.85-5.65) 12/26/23 19:20 Hgb 12.00 g/dL (11.27-16.99) 12/26/23 19:20 Hct 36.3 % (37-53) L 12/26/23 19:20 MCV 94.0 fl (82-101) 12/26/23 19:20 MCH 31.1 pg (27-33) 12/26/23 19:20 MCHC 33.1 g/dL (30-55) 12/26/23 19:20 RDW 12.8 % (12.1-15.1) 12/26/23 19:20 Plt Count 417 10^3/cmm (157-399) H 12/26/23 19:20 MPV 9.9 fL (7.4-10.4) 12/26/23 19:20 Neut % (Auto) 63.3 % 12/26/23 19:20 Lymph % (Auto) 27.6 % 12/26/23 19:20 [place] % (Auto) 6.4 % 12/26/23 19:20 Eos % (Auto) 1.7 % 12/26/23 19:20 Baso % (Auto) 0.5 % 12/26/23 19:20 Neut # (Auto) 8.36 10^3/uL (1.8-7.7) H 12/26/23 19:20 Lymph # (Auto) 3.7 10^3/uL (0.8-4.8) 12/26/23 19:20 [place] # (Auto) 0.8 10^3/uL (0.2-0.9) 12/26/23 19:20 Eos # (Auto) 0.2 10^3/uL (0.0-0.8) 12/26/23 19:20 Baso # (Auto) 0.1 10^3/uL (0.0-0.1) 12/26/23 19:20 Nucleated RBC % (auto) 0 % 12/26/23 19:20 Nucleated RBCs # 0.0 /100WBC 12/26/23 19:20 Sodium 141 mmol/L (136-145) 12/26/23 19:20 Potassium 3.6 mmol/L (3.5-5.1) 12/26/23 19:20 Chloride 103 mmol/L (98-107) 12/26/23 19:20 Carbon Dioxide 27 mmol/L (22-29) 12/26/23 19:20 Anion Gap 14.6 (5-19) 12/26/23 19:20 BUN 11 mg/dL (6-20) 12/26/23 19:20 Creatinine 0.7 mg/dL (0.7-1.2) 12/26/23 19:20 GFR Calculation 119.9 mL/min (90-130) 12/26/23 19:20 Glucose 133 mg/dL (65-115) H 12/26/23 19:20 Calculated Osmolality 293 mOsm/kg (285-295) 12/26/23 19:20 Lactic Acid 1.0 mmol/L (0.5-2.2) 12/26/23 19:20 Calcium 9.1 mg/dL (8.5-10.5) 12/26/23 19:20 Total Bilirubin 0.3 mg/dL (0.15-1.2) 12/26/23 19:20 AST 17 U/L (0-40) 12/26/23 19:20 ALT 19 U/L (0-41) 12/26/23 19:20 Alkaline Phosphatase 93 U/L (40-130) 12/26/23 19:20 Total Protein 6.9 g/dL (6.6-8.7) 12/26/23 19:20 Albumin 4.1 g/dL (3.5-5.2) 12/26/23 19:20 Globulin 2.8 g/dL (1.3-4.6) 12/26/23 19:20 Lipase 24 U/L (13-60) 12/26/23 19:20 All radiology interpretation(s) finalized by discharge Discharge Plan Discharge Patient Disposition: Admitted As Inpatient Clinical Impression: Peptic ulcer, Abdominal pain Condition: Stable Prescriptions: No Action albuterol sulfate 2.5 mg /3 mL (0.083 %) solution for nebulization 2.5 mg inhalation Q6H PRN (Reason: shortness of breath or wheezing) albuterol sulfate [ProAir HFA] 90 mcg/actuation HFA aerosol inhaler 2 puff inhalation Q6H PRN (Reason: shortness of breath or wheezing) Qty: 8.5 2RF lisinopril 5 mg tablet 5 mg PO DAILY Qty: 90 3RF piroxicam 20 mg capsule 20 mg PO DAILY Qty: 90 2RF Stiolto Respimat 2.5-2.5 mcg/actuation mist 2 puff inhalation DAILY Qty: 4 0RF tizanidine 4 mg tablet 4 mg PO TID PRN (Reason: Muscle Spasm) lovastatin 10 mg tablet 10 mg PO QPM levothyroxine 50 mcg tablet 50 mcg PO DAILY gabapentin 300 mg capsule 300 mg PO TID azelastine 137 mcg (0.1 %) aerosol,spray 1 spray intranasal BID PRN (Reason: allergies) Rx Instructions: administer into each nostril fluticasone propionate 50 mcg/actuation spray,suspension See Rx Instructions .ROUTE .COMPLEX PRN (Reason: allergies) Rx Instructions: SHAKE LIQUID AND USE 1 SPRAY IN EACH NOSTRIL EVERY 12 HOURS hydrocodone-acetaminophen 5-325 mg tablet 1 tab PO Q6H PRN (Reason: pain) Qty: 14 0RF Referrals: Joshua Murray MD [Primary Care Provider] - Coding Level of Care Code ED Home Inspector for Sheldon [facility]
[2023-12-26 20:02] LABS: Alanine Aminotransferase 19 U/L (0-41); Albumin Level 4.1 g/dL (3.5-5.2); Alkaline Phosphatase 93 U/L (40-130); Anion Gap 14.6 (5-19); Aspartate Amino Transferase 17 U/L (0-40); Blood Urea Nitrogen 11 mg/dL (6-20); Calcium 9.1 mg/dL (8.5-10.5); Carbon Dioxide 27 mmol/L (22-29); Chloride 103 mmol/L (98-107); Creatinine Clr Calc Pharmacy 134.8439; Globulin 2.8 g/dL (1.3-4.6); Glomerular Filtration Rate 119.9 mL/min (90-130); Glucose 133 mg/dL (65-115); Lipase 24 U/L (13-60); Osmolality Calculated 293 mOsm/kg (285-295); Potassium 3.6 mmol/L (3.5-5.1); Sodium 141 mmol/L (136-145); Total Bilirubin 0.3 mg/dL (0.15-1.2); Total Protein 6.9 g/dL (6.6-8.7)
[2023-12-26] MEDS: piperacillin-tazobactam 3.375 GM in sodium chloride 0.9% (plus) 50 ML IV (20:13)
--- NOTE | 2023-12-26 20:20 | P.CONIM_ITS ---
Providers/Reason For Consult 2 Consulting Physician/Specialty*: General surgery Reason for Consult*: Large gastric ulcer Primary Care Provider: Joshua Murray MD History of Present Illness History of Present Illness Gerry Frank is a 48 year old male who who was sent to the emergency room after CT scan of the abdomen pelvis show evidence of a large gastric ulcer with signs concerning for impending perforation. Per patient report he has been having abdominal pain for the last 2 weeks, he had a coffee-ground emesis 1 week ago and over the last 72 hours his pain has worsened which prompted him to discuss the possibility of imaging with primary care doctor. He was sent for a CT scan of the abdomen pelvis with contrast which show evidence of these large ulcer that is on the posterior side of the stomach near the antrum. There is no signs of actual perforation, no free air, no extravasation of contrast. Currently patient rates his pain about 7/10 locating the mesogastrium. He also complains of constipation. Patient endorses smoking 1 pack/day and having occasional use of marijuana, denies drinking. Review of Systems 2 General: Reports: 10 or more systems reviewed and unremarkable except in HPI and below Medications/Allergies Home Medications Medication Instructions Recorded Confirmed Last Taken Type albuterol sulfate 2.5 mg/3 mL 2.5 mg inhalation Q6H PRN 10/23/20 12/20/23 Unknown History (0.083 %) solution for nebulization shortness of breath or wheezing lisinopril 5 mg tablet 5 mg PO DAILY #90 tabs 04/15/23 12/20/23 12/13/23 Rx albuterol sulfate 90 mcg/actuation 2 puff inhalation Q6H PRN 06/17/23 12/20/23 Unknown Rx aerosol inhaler (ProAir HFA) shortness of breath or wheezing #8.5 grams piroxicam 20 mg capsule 20 mg PO DAILY #90 caps 07/05/23 12/20/23 12/13/23 Rx tiotropium 2.5 mcg-olodaterol 2.5 2 puff inhalation DAILY #4 grams 08/29/23 12/20/23 12/13/23 Rx mcg/actuation mist for inhalation (Stiolto Respimat) azelastine 137 mcg (0.1 %) nasal 1 spray intranasal BID PRN 12/13/23 12/20/23 Unknown History spray aerosol allergies fluticasone propionate 50 See Rx Instructions .Route 12/13/23 12/20/23 Unknown History mcg/actuation nasal .COMPLEX PRN allergies spray,suspension gabapentin 300 mg capsule 300 mg PO TID 12/13/23 12/20/23 12/13/23 History hydrocodone 5 mg-acetaminophen 325 1 tab PO Q6H PRN pain #14 tabs 12/13/23 12/20/23 Unknown Rx mg tablet levothyroxine 50 mcg tablet 50 mcg PO DAILY 12/13/23 12/20/23 12/13/23 History lovastatin 10 mg tablet 10 mg PO QPM 12/13/23 12/20/23 12/12/23 History tizanidine 4 mg tablet 4 mg PO TID PRN Muscle Spasm 12/13/23 12/20/23 Unknown History Allergies Allergy/AdvReac Type Severity Reaction Status Date / Time No Known Allergies Allergy Verified 12/26/23 19:27 PFSH Acute 2 PFSH: Medical History Hypothyroidism Chronic back pain Hyperlipemia COPD (chronic obstructive pulmonary disease) Emphysema, unspecified Rheumatoid arthritis Surgical History H/O eye surgery H/O sinus surgery History of thyroid surgery History of placement of ear tubes History of carpal tunnel surgery History of back surgery Family History Grandfather Cancer Melanoma Family/Other Lung disease COPD Grandmother Lung disease COPD Social History Smoking and tobacco/nicotine status: current every day tobacco/nicotine user cigarettes Packs smoked per day: 1 Years cigarettes smoked: 31 [ Other cigarette details: Used chewing tobacco from age [age] - Hx of 1.5 PPD x 31 Years] Quit status (tobacco/nicotine): considering quitting Alcohol intake: former Substance/Drug Use: never Lives independently: Yes Household members: spouse Marital status: Current occupational status: employed Current occupation: [employer] Current occupational exposures/hazards: Yes (Hose Dust) Do you think of yourself as: Straight/Heterosexual Current gender identity: Male Vitals/I&O/Wt Last Vital Signs Temp 97.3 F L 12/26/23 19:24 Pulse 81 12/26/23 19:24 Resp 14 12/26/23 19:24 BP 95/60 12/26/23 19:24 Pulse Ox 94 12/26/23 19:24 O2 Del Method Room Air 12/26/23 19:24 Weight last 48 hrs Weight 155 lb Physical Exam 2 Narrative: General : Patient is well developed , no acute distress, oriented x3 Head : Normal cephalic, a-traumatic. Nose : Mucous membranes are without erythema. Lungs : Equal chest rise bilaterally, no use of accessory muscles, trachea is midline. CV : Rate and rhythm are normal. Abdomen : Soft, nondistended, there is mild generalized tenderness note localization in the left upper quadrant, no rebound tenderness, no peritoneal signs. Extremities : No edema. Upper extremities are normal bilaterally. Back : non-tender to palpation, no CVA tenderness. Data 12/26/23 19:20 12/26/23 19:20 A&P Assessment and plan (1) Abdominal pain: (2) Peptic ulcer: Plan After complete history, physical examination and review of all available clinical data the following is my assessment. Patient with multiple risk factors for peptic ulcer disease including tobacco use and chronic ingestion of pain medication for back pain. Has been having worsening pain for the last [address] scan showed evidence of a very large ulcer in the posterior side of the stomach near the antrum with signs of impending perforation, there is no evidence of actual perforation, there is no evidence of free air in the abdomen there is no evidence of extravasation of contrast on fluid collection present in the retroperitoneum or in the lesser sac. This indicates that there also has not progressed into perforation. Therefore and due to patient stable clinical status with a stable vital signs I think it would be appropriate to proceed with nonsurgical management of gastric ulcer. Patient will be kept n.p.o. for the next 48 to 72 hours, he will receive high-dose PPI in the form of a drip and in addition he will receive sucralfate every 6 hours in liquid form, we will start the patient on Zosyn and metronidazole for broad-spectrum antibiotic coverage and also with a move eradicating H. pylori present. If there is no signs of clinical deterioration and patient is tolerating treatment the plan will be to repeat either a CT scan or obtain an upper GI series after 48 to 72 hours of treatment. Depending on the results of the scan we will be able to restart diet. I do not recommend endoscopy at this time as most likely will cause progression of the ulceration into perforation. But patient will require endoscopy in 6 to 8 weeks after initiation of treatment. In the case of clinical deterioration plan will be for exploratory laparotomy and Eliseo patch repair. I have explained to the patient that in the case of progression to perforation this has a very high chance of morbidity and mortality even with surgical management. Patient and family member show understanding. -N.p.o. -Please do not insert NG tube -PPI drip -Sucralfate every 6 hours 1 g liquid form -Zosyn and metronidazole for antibiotics -Serial abdominal exams -General surgery will continue to follow Coding Level of Care Code 20386 Diagnoses Abdominal pain R10.9 Peptic ulcer K27.9
[2023-12-26] MEDS: ondansetron 2 mg/ML SDV 2 mL 4 MG IVP (20:22)
[2023-12-26] MEDS: HYDROmorphone 1 mg/mL INJ 1 mL IVP (20:23)
[2023-12-26] MEDS: sodium chloride 0.9% 1,000 ML 999 ML IV (20:26)
[2023-12-26] MEDS: pantoprazole 40 mg SDV 80 MG IVP (20:31)
[2023-12-26] MEDS: pantoprazole 40 MG in sodium chloride 0.9% (plus) 100 ML 20 MG IV (20:39)
--- NOTE | 2023-12-26 21:57 | P.HP_ITS ---
Providers/Chief Complaint 2 Admitting Physician: Natasha Herrera MD Primary Care Provider: Joshua Murray MD Chief Complaint: jace sent ulcer History of Present Illness Gerry Frank is a 48 year old male denting with chief complaint abdominal pain. As per the patient he was in usual state of health until 2 weeks ago when he started experiencing abdominal pain which was accompanied by only 1 episode of emesis, he noticed coffee-ground emesis approximately 5 to 7 days ago, symptoms worsened in last 2 to 3 days, PCP ordered CT scan which showed evidence of large gastric ulcer with signs of concerning impending gastric ulcer perforation, he was seen by general surgery in the ER, no acute indication for surgical intervention as of yet as per the surgeon, patient will go to ICU on antibiotics strong Protonix dose Patient is stating that he had EGD in the past when he had a cyst on his thyroid which was removed He is endorsing to smoking on daily basis, he started chewing tobacco when he was 17 years old Drinks occasionally no recreational drug Patient is stating that he came to the hospital when his PCP called for CT abdomen pelvis results today, he is rating his pain 6/10, he ate his lunch today after emesis today Review of Systems 2 Const: Reports: chills and change in weight Eyes: Denies: change in vision ENMT: Denies: throat pain Card: Denies: chest pain Resp: Denies: dyspnea GI: Reports: abdominal pain, nausea, vomiting and constipation : Denies: flank pain Musc: Denies: neck pain Skin/Breast: Denies: rash Neuro: Denies: headache(s) Psych: Reports: anxiety Medications/Allergies Home Medications Medication Instructions Recorded Confirmed Last Taken Type albuterol sulfate 2.5 mg/3 mL 2.5 mg inhalation Q6H PRN 10/23/20 12/20/23 Unknown History (0.083 %) solution for nebulization shortness of breath or wheezing lisinopril 5 mg tablet 5 mg PO DAILY #90 tabs 04/15/23 12/20/23 12/13/23 Rx albuterol sulfate 90 mcg/actuation 2 puff inhalation Q6H PRN 06/17/23 12/20/23 Unknown Rx aerosol inhaler (ProAir HFA) shortness of breath or wheezing #8.5 grams piroxicam 20 mg capsule 20 mg PO DAILY #90 caps 07/05/23 12/20/23 12/13/23 Rx tiotropium 2.5 mcg-olodaterol 2.5 2 puff inhalation DAILY #4 grams 08/29/23 12/20/23 12/13/23 Rx mcg/actuation mist for inhalation (Stiolto Respimat) azelastine 137 mcg (0.1 %) nasal 1 spray intranasal BID PRN 12/13/23 12/20/23 Unknown History spray aerosol allergies fluticasone propionate 50 See Rx Instructions .Route 12/13/23 12/20/23 Unknown History mcg/actuation nasal .COMPLEX PRN allergies spray,suspension gabapentin 300 mg capsule 300 mg PO TID 12/13/23 12/20/23 12/13/23 History hydrocodone 5 mg-acetaminophen 325 1 tab PO Q6H PRN pain #14 tabs 12/13/23 12/20/23 Unknown Rx mg tablet levothyroxine 50 mcg tablet 50 mcg PO DAILY 12/13/23 12/20/23 12/13/23 History lovastatin 10 mg tablet 10 mg PO QPM 12/13/23 12/20/23 12/12/23 History tizanidine 4 mg tablet 4 mg PO TID PRN Muscle Spasm 12/13/23 12/20/23 Unknown History Allergies Allergy/AdvReac Type Severity Reaction Status Date / Time No Known Allergies Allergy Verified 12/26/23 19:27 PFSH Acute 2 PFSH: Medical History Hypothyroidism Chronic back pain Hyperlipemia COPD (chronic obstructive pulmonary disease) Emphysema, unspecified Rheumatoid arthritis Surgical History H/O eye surgery H/O sinus surgery History of thyroid surgery History of placement of ear tubes History of carpal tunnel surgery History of back surgery Family History Grandfather Cancer Melanoma Family/Other Lung disease COPD Grandmother Lung disease COPD Social History Smoking and tobacco/nicotine status: current every day tobacco/nicotine user cigarettes Packs smoked per day: 1 Years cigarettes smoked: 31 [ Other cigarette details: Used chewing tobacco from age [age] - Hx of 1.5 PPD x 31 Years] Quit status (tobacco/nicotine): considering quitting Alcohol intake: former Substance/Drug Use: never Lives independently: Yes Household members: spouse Marital status: Current occupational status: employed Current occupation: [employer] Current occupational exposures/hazards: Yes (Hose Dust) Do you think of yourself as: Straight/Heterosexual Current gender identity: Male Vitals/I&O/Wt Last Vital Signs Temp 97.3 F L 12/26/23 19:24 Pulse 81 12/26/23 19:24 Resp 23 H 12/26/23 20:23 BP 95/60 12/26/23 19:24 Pulse Ox 96 12/26/23 20:23 O2 Del Method Room Air 12/26/23 19:24 12/26/23 12/26/23 12/26/23 06:59 14:59 22:59 Intake Total 50 / 50 Balance 50 / 50 Weight last 48 hrs Weight 70.307 kg Physical Exam 2 Narrative: young male Dehydrated Abdominal pain No sign of peritonitis Clinical signs of dehydration S1, S2 Currently on room air Hypotensive Nonfocal neuroexam NIH 0 Nodule thyroid wheezing Data 12/26/23 19:20 12/26/23 19:20 A&P Assessment and plan (1) Peptic ulcer: (2) Abdominal pain: (3) BARRY on CPAP: (4) Nicotine addiction: (5) Gastric ulcer: Plan Gastric ulcer No active signs of perforation Appreciate general surgery recommendations Would avoid NG tube placement Continue Protonix drip along sucralfate Add metronidazole and Zosyn Admit to ICU Aggressive fluid hydration Monitor hemodynamics Patient takes piroxicam for his arthritis I will give him IV opioids along antibiotics and IV fluids Full code N.p.o. COPD, active smoker, no acute exacerbation Arthritis no acute exacerbation Hypothyroidism currently levothyroxine is on hold Hypotensive related to dehydration, hypovolemia: Continue IV fluids hold lisinopril Attestations 2 Medical Necessity Statement*: More than 2 midnights anticipated Diagnoses Peptic ulcer K27.9 Abdominal pain R10.9 BARRY on CPAP G47.33; Z99.89 Nicotine addiction F17.200 Gastric ulcer K25.9
[2023-12-26] MEDS: morphine 4 mg/mL SDV 1 mL 2 MG IVP (22:59)
[2023-12-26] MEDS: metroNIDAZOLE IV 500 MG/100 ML PREMIX 100 MG IV (23:01)
[2023-12-26] MEDS: dextrose 5%-sod chloride 0.9% 1,000 ML 100 ML IV (23:01)
[2023-12-27] VITALS (58 sets, daily range): BP systolic 104–180; BP diastolic 58–96; PULSE 45–75; RESP 12–20; TEMP 36.4–36.8; O2SAT 94–99
[2023-12-27] MEDS: pantoprazole 40 MG in sodium chloride 0.9% (plus) 100 ML 20 MG IV ×5 (00:56→21:45)
[2023-12-27] MEDS: piperacillin-tazobactam 3.375 GM in sodium chloride 0.9% (plus) 50 ML IV ×3 (00:56→17:10)
[2023-12-27 05:09] LABS: Basophils # 0.1 10^3/uL (0.0-0.1); Basophils % 0.6 %; Eosinophils # 0.2 10^3/uL (0.0-0.8); Eosinophils % 2.2 %; Lymphocytes # 2.6 10^3/uL (0.8-4.8); Lymphocytes % 24.8 %; Mean Corpuscular HGB Conc 31.5 g/dL (30-55); Mean Corpuscular Hemoglobin 30.4 pg (27-33); Mean Corpuscular Volume 96.3 fl (82-101); Mean Platelet Volume 10.2 fL (7.4-10.4); Monocytes # 0.7 10^3/uL (0.2-0.9); Monocytes % 6.8 %; Neutrophils # 6.87 10^3/uL (1.8-7.7); Neutrophils % 65.3 %; Nucleated Red Blood Cells % 0 %; Platelet Count 358 10^3/cmm (157-399); Red Blood Count 4.05 10^6/uL (3.85-5.65); Red Cell Distribution Width 12.9 % (12.1-15.1); White Blood Count 10.51 10^3/uL (3.29-11.43)
[2023-12-27 05:37] LABS: Anion Gap 15.2 (5-19); Blood Urea Nitrogen 7 mg/dL (6-20); C Reactive Protein 18.4 mg/L (0.0-4.9); Calcium 8.5 mg/dL (8.5-10.5); Carbon Dioxide 21 mmol/L (22-29); Chloride 108 mmol/L (98-107); Creatinine Clr Calc Pharmacy 154.9865; Glomerular Filtration Rate 143.2 mL/min (90-130); Glucose 87 mg/dL (65-115); Magnesium 2.2 mg/dL (1.7-2.3); Osmolality Calculated 287 mOsm/kg (285-295); Phosphorus 3.7 mg/dL (2.5-4.5); Potassium 4.2 mmol/L (3.5-5.1); Sodium 140 mmol/L (136-145)
[2023-12-27] MEDS: sucralfate 1 gm/10 mL Oral Liq UDC PO ×5 (06:02→20:37)
[2023-12-27] MEDS: metroNIDAZOLE IV 500 MG/100 ML PREMIX 100 MG IV ×3 (06:03→23:00)
[2023-12-27] MEDS: morphine 4 mg/mL SDV 1 mL 2 MG IVP ×4 (06:09→22:59)
[2023-12-27] MEDS: dextrose 5%-sod chloride 0.9% 1,000 ML 100 ML IV ×2 (09:39→18:59)
[2023-12-27] MEDS: nicotine 14 mg Patch 1 PATCH TRANSDERMA (10:12)
--- NOTE | 2023-12-27 11:36 | P.PN_ITS ---
Subjective 2 Subjective: 48[facility] with radiographic features concerning for impending perforation. Patient has remained stable, abdominal pain has improved, no nausea or vomiting, no other significant symptoms at the moment. Vitals/I&O/Wt Last Vital Signs Temp 97.7 F 12/27/23 08:00 Pulse 55 L 12/27/23 08:00 Resp 15 12/27/23 08:00 BP 134/78 12/27/23 08:00 Pulse Ox 95 12/27/23 08:00 O2 Del Method Room Air 12/27/23 06:00 12/26/23 12/27/23 12/27/23 22:59 06:59 14:59 Intake Total 50 / 50 2098.666 / 2148.666 348.334 / 348.334 Output Total 725 / 725 1125 / 1125 Balance 50 / 50 1373.666 / 1423.666 -776.666 / -776.666 Weight last 48 hrs Weight 148 lb 14.4 oz Weight 148 lb 12.8 oz Weight 155 lb Physical Exam 2 GI: OTHER: Abdominal examination is benign, abdomen is soft, minimally tender in the left upper quadrant, nondistended. Data 12/27/23 04:38 12/27/23 04:38 A&P Assessment and plan (1) Gastric ulcer: (2) Peptic ulcer: (3) Abdominal pain: Plan After complete history physical examination and review of all available clinical data the following is my assessment. Patient has shown stable clinical course, vital signs Remain in normal limits, patient is not tachycardic, white count has improved and is now normal, abdominal pain is improving. Physical exam is not concerning and patient does not have peritonitis. As discussed yesterday with the patient there is a very high risk for progression into perforation that will mandate exploration. To prevent this from happening we are doing a very aggressive PPI therapy with a PPI drip, broad-spectrum antibiotics and sucralfate every 6 hours. If plasia and has a good clinical course over the next 48 hours we will plan to reinstate diet and then slowly advance to a soft diet. I will continue to do serial abdominal exams. We will continue to trend daily labs including CRP. In the case of clinical worsening we will think about new imaging versus direct progression to surgery. Attestations 2 Medical Necessity Statement*: Patient will require at least 72 hours of hospital stay for management of large gastric ulcer. Coding Level of Care Code 48113 Diagnoses Gastric ulcer K25.9 Peptic ulcer K27.9 Abdominal pain R10.9
--- NOTE | 2023-12-27 15:37 | P.MISC_ITS ---
Miscellaneous Note Purpose of Documentation: Update on patient care Note: 48-year-old male with a large gastric ul cer with imaging findings concerning for impending perforation. ? Patient was examined this afternoon, feeling better, abdominal pain has improved. ? Vital signs have remained stable, no fever, no tachycardia ? Abdominal examination is benign, abdomen is soft, minimally tender in the epigastrium. There is no rebound symptoms or peritoneal signs ? Will continue current management with n.p.o., high-dose PPI and sucralfate. Will continue to trend laboratory workup and do serial abdominal exams.
--- NOTE | 2023-12-27 16:51 | P.PN_ITS ---
Subjective 2 Subjective: Patient was seen this morning, he denies any nausea, no vomiting does have some mild abdominal pain, denies any bloody or black stools, he denies overuse of ibuprofen but does use Motrin due to his back pain but uses it intermittently, he is on piroxicam, denies a history of gastric ulcers denies a family history of gastric ulcers, does not eat smoke meats or charcoal food particularly Vitals/I&O/Wt Last Vital Signs Temp 98.2 F 12/27/23 13:00 Pulse 55 L 12/27/23 15:30 Resp 16 12/27/23 15:30 BP 151/79 12/27/23 15:30 Pulse Ox 97 12/27/23 15:30 O2 Del Method Room Air 12/27/23 06:00 12/27/23 12/27/23 12/27/23 06:59 14:59 22:59 Intake Total 2098.666 / 2148.666 448.334 / 448.334 Output Total 725 / 725 2200 / 2200 Balance 1373.666 / 1423.666 -1751.666 / -1751.666 Weight last 48 hrs Weight 67.54 kg Weight 67.495 kg Weight 70.307 kg Physical Exam 2 Const: COMMON NORMALS: no acute distress and patient oriented x3 Resp: COMMON NORMALS: normal respiratory effort, No retractions, No use of accessory muscles and clear to auscultation bilaterally AUSCULTATION: clear to auscultation bilaterally Cardio: COMMON NORMALS: regular rate, regular rhythm, S1 normal heart sound present and S2 normal heart sound present RATE: regular rate RHYTHM: r egular rhythm HEART SOUNDS: S1 normal heart sound present and S2 normal heart sound present GI: COMMON NORMALS: Normal to inspection, nondistended, normoactive bowel sounds present and non-tender Extremity: COMMON NORMALS: no pedal edema Neuro: COMMON NORMALS: patient oriented x3 Psych: COMMON NORMALS: mental status grossly normal Data 12/27/23 04:38 12/27/23 04:38 A&P Assessment and plan (1) Peptic ulcer: (2) Abdominal pain: (3) BARRY on CPAP: (4) Nicotine addiction: (5) Gastric ulcer: Plan Gastric ulcer No active signs of perforation Appreciate general surgery recommendations Would avoid NG tube placement Continue Protonix drip along sucralfate Add metronidazole and Zosyn Admit to ICU fluid hydration Monitor hemodynamics Patient takes piroxicam for his arthritis Continue IV morphine Full code N.p.o. COPD, active smoker, no acute exacerbation Arthritis no acute exacerbation Hypothyroidism Spoke to patient, spoke to nursing staff, spoke to general surgery Attestations 2 Medical Necessity Statement*: Patient requires hospitalization for gastric ulcer, Diagnoses Peptic ulcer K27.9 Abdominal pain R10.9 BARRY on CPAP G47.33; Z99.89 Nicotine addiction F17.200 Gastric ulcer K25.9
[2023-12-27] MEDS: lisinopril 5 mg Tablet PO (23:38)
[2023-12-28] VITALS (56 sets, daily range): BP systolic 135–178; BP diastolic 55–98; PULSE 46–73; RESP 13–26; TEMP 36.5–36.7; O2SAT 93–100
[2023-12-28] MEDS: piperacillin-tazobactam 3.375 GM in sodium chloride 0.9% (plus) 50 ML IV ×3 (01:21→17:24)
[2023-12-28] MEDS: morphine 4 mg/mL SDV 1 mL 2 MG IVP ×5 (03:06→22:26)
[2023-12-28] MEDS: pantoprazole 40 MG in sodium chloride 0.9% (plus) 100 ML 20 MG IV ×4 (03:06→21:20)
[2023-12-28 04:39] LABS: Basophils # 0.1 10^3/uL (0.0-0.1); Basophils % 0.9 %; Eosinophils # 0.2 10^3/uL (0.0-0.8); Eosinophils % 2.5 %; Lymphocytes # 2.2 10^3/uL (0.8-4.8); Lymphocytes % 32.1 %; Mean Corpuscular HGB Conc 32.8 g/dL (30-55); Mean Corpuscular Hemoglobin 30.5 pg (27-33); Mean Platelet Volume 10.7 fL (7.4-10.4); Monocytes # 0.6 10^3/uL (0.2-0.9); Monocytes % 8.7 %; Neutrophils # 3.84 10^3/uL (1.8-7.7); Neutrophils % 55.7 %; Nucleated Red Blood Cells % 0 %; Platelet Count 368 10^3/cmm (157-399); Red Blood Count 3.87 10^6/uL (3.85-5.65); Red Cell Distribution Width 12.7 % (12.1-15.1); White Blood Count 6.89 10^3/uL (3.29-11.43)
[2023-12-28] MEDS: dextrose 5%-sod chloride 0.9% 1,000 ML 100 ML IV ×2 (04:45→14:53)
[2023-12-28 04:57] LABS: Alanine Aminotransferase 12 U/L (0-41); Albumin Level 3.3 g/dL (3.5-5.2); Alkaline Phosphatase 80 U/L (40-130); Anion Gap 12.4 (5-19); Aspartate Amino Transferase 18 U/L (0-40); Blood Urea Nitrogen 5 mg/dL (6-20); Calcium 8.1 mg/dL (8.5-10.5); Carbon Dioxide 23 mmol/L (22-29); Chloride 110 mmol/L (98-107); Creatinine Clr Calc Pharmacy 132.8456; Globulin 2.7 g/dL (1.3-4.6); Glomerular Filtration Rate 119.9 mL/min (90-130); Glucose 94 mg/dL (65-115); Magnesium 2.1 mg/dL (1.7-2.3); Osmolality Calculated 291 mOsm/kg (285-295); Potassium 3.4 mmol/L (3.5-5.1); Sodium 142 mmol/L (136-145); Total Bilirubin 0.3 mg/dL (0.15-1.2)
[2023-12-28] MEDS: metroNIDAZOLE IV 500 MG/100 ML PREMIX 100 MG IV ×3 (06:18→22:25)
--- NOTE | 2023-12-28 07:29 | PM.PN ---
Subjective Subjective: Patient is hospital day 2 after being admitted for very large gastric ulcer with imaging findings concerning for impending perforation. Patient has remained stable abdominal exam has remained benign and pain level is starting to improve. No fever no chills or any other concerning changes for the possibility of perforation. Vitals/I&O/Wt Last Vital Signs Temp 97.8 F 12/28/23 01:00 Pulse 50 L 12/28/23 06:11 Resp 16 12/28/23 06:00 BP 161/86 12/28/23 06:00 Pulse Ox 96 12/28/23 06:00 O2 Del Method Room Air 12/28/23 06:00 12/27/23 12/28/23 12/28/23 22:59 06:59 14:59 Intake Total 1627.333 / 2125.667 875 / 3000.667 Output Total 800 / 3000 1100 / 4100 Balance 827.333 / -874.333 -225 / -1099.333 Weight last 48 hrs Weight 146 lb 9.6 oz Weight 148 lb 14.4 oz Weight 148 lb 12.8 oz Weight 155 lb Physical Exam Narrative: General : Patient is well developed , no acute distress, oriented x3 Head : Normal cephalic, a-traumatic. Nose : Mucous membranes are without erythema. Lungs : Equal chest rise bilaterally, no use of accessory muscles, trachea is midline. CV : Rate and rhythm are normal. Abdomen : Soft,, nondistended, minimally tender in the upper abdomen. Extremities : No edema. Upper extremities are normal bilaterally. Back : non-tender to palpation, no CVA tenderness. Data 12/28/23 04:05 12/28/23 04:05 A&P Assessment and plan (1) Abdominal pain: (2) Gastric ulcer: Plan Is a 48-year-old male who presented to the hospital with a very large gastric ulcer with imaging findings concerning for impending perforation. Patient was initiated on PPI drip and sucralfate 4 times a day and he has been kept n.p.o. for the next 24 hours. Over the last 24 hours patient has seen improvement of his symptoms, abdominal pain has improved, no nausea no vomiting, no abdominal distention, no significant abdominal tenderness. Laboratory workup has remained unremarkable with a white count of 6. Vital signs have remained stable patient is not tachycardic or febrile. My recommendation will be to continue 24 more hours of strict n.p.o. except for sucralfate and levothyroxine as needed. If clinical course continues to improve we may attempt p.o. clear liquid diet tomorrow. -Strict n.p.o., patient can have small amount of ice chips, he should continue to receive sucralfate and can be restarted on levothyroxine if indicated by medical team. All other p.o. medication should be avoided, no p.o. pain medication should be given. ? Continue high-dose PPI drip ? Continue IV hydration ? Continue to trend labs, please obtain a CRP level in the morning. ? Continue IV antibiotics. This course will be continued at least until the patient is discharged from the hospital ? Will continue with serial abdominal exams ? Appreciate all other management per primary team Attestations Medical Necessity Statement*: Patient will require 24 to 48 hours of hospital stay for management of acute gastric ulceration with concerning imaging findings. Coding Level of Care Code Acute Code for [facility] Diagnoses Abdominal pain R10.9 Gastric ulcer K25.9
[2023-12-28] MEDS: levothyroxine 50 mcg Tablet PO (08:17)
[2023-12-28] MEDS: sucralfate 1 gm/10 mL Oral Liq UDC PO ×4 (08:17→22:26)
[2023-12-28] MEDS: gabapentin 300 mg Capsule PO (08:17)
[2023-12-28] MEDS: nicotine 14 mg Patch 1 PATCH TRANSDERMA (08:17)
[2023-12-28] MEDS: lisinopril 5 mg Tablet PO (08:18)
[2023-12-28] MEDS: lidocaine 1% 5 ML in potassium chloride premix 100 ML 52.5 ML IV (10:57)
--- NOTE | 2023-12-28 14:55 | P.MISC_ITS ---
Miscellaneous Note Purpose of Documentation: Update on patient care Note: Patient is doing very well this afternoon, abdominal pain has significantly improved but due to lack of p.o. pain medication patient is now complaining of recurrence of his lower thoracic back pain. Vital signs have remained stable, abdominal exam is completely benign. Patient denies nausea and vomit. Has not had a bowel movement since admission. -Patient is having very good progression , my plan is to obtain an upper GI series tomorrow and if no evidence of perforation we will start the patient on full liquid diet and advance to a GI soft diet as tolerated. -Will continue with serial abdominal exa ms and will evaluate the patient in the morning before imaging.
--- NOTE | 2023-12-28 15:50 | P.PN_ITS ---
Vitals/I&O/Wt Last Vital Signs Temp 97.8 F 12/28/23 01:00 Pulse 52 L 12/28/23 11:00 Resp 16 12/28/23 12:20 BP 160/85 12/28/23 11:00 Pulse Ox 97 12/28/23 11:00 O2 Del Method Room Air 12/28/23 06:00 12/28/23 12/28/23 12/28/23 06:59 14:59 22:59 Intake Total 875 / 3000.667 1470 / 1470 Output Total 1100 / 4100 300 / 300 Balance -225 / -7669.605 9249 / 1170 Weight last 48 hrs Weight 66.497 kg Weight 67.54 kg Weight 67.495 kg Weight 70.307 kg Physical Exam 2 Const: COMMON NORMALS: no acute distress and patient oriented x3 Resp: COMMON NORMALS: normal respiratory effort, No retractions, No use of accessory muscles and clear to auscultation bilaterally AUSCULTATION: clear to auscultation bilaterally Cardio: COMMON NORMALS: regular rate, regular rhythm, S1 normal heart sound present and S2 normal heart sound present RATE: regular rate RHYTHM: r egular rhythm HEART SOUNDS: S1 normal heart sound present and S2 normal heart sound present GI: COMMON NORMALS: Normal to inspection, nondistended, normoactive bowel sounds present and non-tender OTHER: No guarding, no rebound, no rigidity Extremity: COMMON NORMALS: no pedal edema Neuro: COMMON NORMALS: patient oriented x3 Psych: COMMON NORMALS: mental status grossly normal Data 12/28/23 04:05 12/28/23 04:05 A&P Assessment and plan (1) Peptic ulcer: (2) Abdominal pain: (3) BARRY on CPAP: (4) Nicotine addiction: (5) Gastric ulcer: Plan Gastric ulcer No active signs of perforation Appreciate general surgery recommendations Would avoid NG tube placement Continue Protonix drip along sucralfate Add metronidazole and Zosyn Admit to ICU fluid hydration Monitor hemodynamics Patient takes piroxicam for his arthritis Continue IV morphine Full code N.p.o. COPD, active smoker, no acute exacerbation Arthritis no acute exacerbation Hypothyroidism Spoke to patient, spoke to nursing staff, spoke to general surgery Attestations 2 Medical Necessity Statement*: Patient requires hospitalization for gastric ulcer, concern for impending perforation Diagnoses Peptic ulcer K27.9 Abdominal pain R10.9 BARRY on CPAP G47.33; Z99.89 Nicotine addiction F17.200 Gastric ulcer K25.9
[2023-12-29] VITALS (44 sets, daily range): BP systolic 125–168; BP diastolic 66–100; PULSE 44–66; RESP 13–26; TEMP 36.4–36.8; O2SAT 92–100
[2023-12-29] MEDS: dextrose 5%-sod chloride 0.9% 1,000 ML 100 ML IV ×3 (00:50→20:09)
[2023-12-29] MEDS: piperacillin-tazobactam 3.375 GM in sodium chloride 0.9% (plus) 50 ML IV ×3 (00:52→16:50)
[2023-12-29] MEDS: pantoprazole 40 MG in sodium chloride 0.9% (plus) 100 ML 20 MG IV ×5 (02:26→23:56)
[2023-12-29 03:29] LABS: Basophils # 0.1 10^3/uL (0.0-0.1); Eosinophils # 0.2 10^3/uL (0.0-0.8); Eosinophils % 2.4 %; Hematocrit 36.7 % (37-53); Lymphocytes # 1.9 10^3/uL (0.8-4.8); Lymphocytes % 29.7 %; Mean Corpuscular HGB Conc 34.1 g/dL (30-55); Mean Corpuscular Volume 91.1 fl (82-101); Mean Platelet Volume 10.1 fL (7.4-10.4); Monocytes # 0.6 10^3/uL (0.2-0.9); Monocytes % 9.1 %; Neutrophils # 3.62 10^3/uL (1.8-7.7); Neutrophils % 57.6 %; Nucleated Red Blood Cells % 0 %; Platelet Count 342 10^3/cmm (157-399); Red Blood Count 4.03 10^6/uL (3.85-5.65); Red Cell Distribution Width 12.5 % (12.1-15.1); White Blood Count 6.27 10^3/uL (3.29-11.43)
[2023-12-29 03:49] LABS: Alanine Aminotransferase 10 U/L (0-41); Albumin Level 3.3 g/dL (3.5-5.2); Alkaline Phosphatase 75 U/L (40-130); Anion Gap 13.1 (5-19); Aspartate Amino Transferase 14 U/L (0-40); Blood Urea Nitrogen 5 mg/dL (6-20); Calcium 8.3 mg/dL (8.5-10.5); Carbon Dioxide 22 mmol/L (22-29); Chloride 108 mmol/L (98-107); Creatinine Clr Calc Pharmacy 132.0923; Globulin 2.8 g/dL (1.3-4.6); Glomerular Filtration Rate 119.9 mL/min (90-130); Glucose 96 mg/dL (65-115); Osmolality Calculated 287 mOsm/kg (285-295); Phosphorus 2.9 mg/dL (2.5-4.5); Potassium 3.1 mmol/L (3.5-5.1); Sodium 140 mmol/L (136-145); Total Bilirubin 0.3 mg/dL (0.15-1.2); Total Protein 6.1 g/dL (6.6-8.7)
[2023-12-29] MEDS: metroNIDAZOLE IV 500 MG/100 ML PREMIX 100 MG IV ×2 (06:12→14:49)
[2023-12-29] MEDS: morphine 4 mg/mL SDV 1 mL 2 MG IVP ×2 (06:20→20:08)
--- NOTE | 2023-12-29 06:55 | P.PN_ITS ---
Subjective 2 Subjective: This hospital day 3, patient is doing very well, vital signs have remained stable and he states that his abdominal pain level has significantly improved since admission. Vitals/I&O/Wt Last Vital Signs Temp 98.2 F 12/29/23 04:59 Pulse 56 L 12/29/23 06:00 Resp 14 12/29/23 06:20 BP 136/74 12/29/23 06:00 Pulse Ox 97 12/29/23 06:20 O2 Del Method Room Air 12/29/23 02:30 12/28/23 12/28/23 12/29/23 14:59 22:59 06:59 Intake Total 1590 / 1590 816.667 / 2406.667 1308.333 / 3715.000 Output Total 600 / 600 1775 / 2375 650 / 3025 Balance 990 / 990 -958.333 / 31.667 658.333 / 690.000 Weight last 48 hrs Weight 147 lb 7 oz Weight 146 lb 9.6 oz Physical Exam 2 GI: OTHER: Abdomen is benign, soft, nontender, nondistended. Data 12/29/23 03:10 12/29/23 03:10 A&P Assessment and plan (1) Gastric ulcer: Plan Patient appears to be progressing well after conservative management of giant gastric ulcer, vitals are stable, white count is normal, abdominal exam is completely benign. He has been continued on PPI drip and p.o. sucralfate with good results. We have been avoiding p.o. medications and NSAIDs. The plan is to obtain a upper GI fluoroscopy study today and if no evidence of perforation we will proceed with advancing diet to full liquid diet without restriction no caffeine and no soda. Attestations 2 Medical Necessity Statement*: Patient will require 48 to 72 hours of hospital stay for continued management of giant gastric ulcer. Coding Level of Care Code 46110 Diagnoses Gastric ulcer K25.9
--- NOTE | 2023-12-29 06:58 | FL_ITS ---
WS: [id number] Exam: [place] upper GI gastrografin [id number] Date/Time of Exam: 12/29/2023 1:06 PM Reason For Exam: Evaluation of Large Gastrioc ulcer Swallowing function was normal. The esophagus is smooth in contour with normal motility. Opacificatio n of the stomach shows a large lesser curvature gastric ulcer measuring about 1.3 cm in greatest diam eter. There is marked prominence of gastric and duodenal mucosa suggesting gastroduodenitis. No other ulcers were identified. No obvious gastric mass. No gastric outlet obstruction identified. No perfor ation. Residual contrast noted in the colon. IMPRESSION: 1. Large lesser curvature gastric ulcer measuring about 1.3 cm in greatest diameter. No perforation i s identified. There is associated gastroduodenitis.
[2023-12-29] MEDS: ipratropium-albuterol 3 mL Neb INHALATION (08:24)
[2023-12-29] MEDS: lidocaine 1% 5 ML in potassium chloride premix 100 ML 52.5 ML IV (09:02)
[2023-12-29] MEDS: levothyroxine 100 mcg SDV 25 MCG IVP (09:03)
[2023-12-29] MEDS: nicotine 14 mg Patch 1 PATCH TRANSDERMA (09:03)
[2023-12-29] MEDS: sucralfate 1 gm/10 mL Oral Liq UDC PO ×4 (09:04→20:09)
--- NOTE | 2023-12-29 14:52 | P.MISC_ITS ---
Miscellaneous Note Purpose of Documentation: Update on patient care Note: Patient underwent upper GI fluoroscopy, there is demostration of gastric ulcer without evidence of perforation. the plan is to start full liquid diet today and if tolerating patient will be advanced to GI soft diet in the morning. will continue PPI drip today and will transition to BID PPI in the morning. Discharge is anticipated in 48 hours once patient is tolerating diet. -Full liquid diet (no soda, no coffee) -Continue PPI Drip, will transition to B ID PPI tomorrow - Can re-start PO home meds as needed (A void PO pain medication including gabapentin until discharge) -Will continue serial abdominal exams -Will continue IV ABX until discharge -Will continue sucralfate 4 times daily
--- NOTE | 2023-12-29 16:03 | P.PN_ITS ---
Subjective 2 Subjective: Patient was seen this morning, denies any nausea, no vomiting, no abdominal pain is passing gas has not had any bloody bowel movements, Vitals/I&O/Wt Last Vital Signs Temp 98.2 F 12/29/23 04:59 Pulse 59 L 12/29/23 15:00 Resp 18 12/29/23 15:00 BP 158/78 12/29/23 15:00 Pulse Ox 99 12/29/23 15:00 O2 Del Method Room Air 12/29/23 08:26 12/29/23 12/29/23 12/29/23 06:59 14:59 22:59 Intake Total 1308.333 / 3715.000 767.667 / 767.667 Output Total 650 / 3025 Balance 658.333 / 690.000 767.667 / 767.667 Weight last 48 hrs Weight 66.877 kg Weight 66.497 kg Physical Exam 2 Const: COMMON NORMALS: no acute distress and patient oriented x3 Resp: COMMON NORMALS: normal respiratory effort, No retractions, No use of accessory muscles and clear to auscultation bilaterally AUSCULTATION: clear to auscultation bilaterally Cardio: COMMON NORMALS: regular rate, regular rhythm, S1 normal heart sound present and S2 normal heart sound present RATE: regular rate RHYTHM: r egular rhythm HEART SOUNDS: S1 normal heart sound present and S2 normal heart sound present GI: COMMON NORMALS: Normal to inspection, nondistended, normoactive bowel sounds present and non-tender Extremity: COMMON NORMALS: no pedal edema Neuro: COMMON NORMALS: patient oriented x3 Psych: COMMON NORMALS: mental status grossly normal Data 12/29/23 03:10 12/29/23 03:10 A&P Assessment and plan (1) Peptic ulcer: (2) Abdominal pain: (3) BARRY on CPAP: (4) Nicotine addiction: (5) Gastric ulcer: Plan Gastric ulcer No active signs of perforation Appreciate general surgery recommendations Would avoid NG tube placement Continue Protonix drip along sucralfate metronidazole and Zosyn fluid hydration Monitor hemodynamics Patient takes piroxicam for his arthritis Continue IV morphine Full code N.p.o. Will await Gastrografin study ? Possibly advance to clear liquids ? Moved to medical floors COPD, active smoker, no acute exacerbation Arthritis no acute exacerbation Hypothyroidism Spoke to patient, spoke to nursing staff, spoke to general surgery Attestations 2 Medical Necessity Statement*: Patient requires hospitalization for acute concerns for gastric ulcer, Diagnoses Peptic ulcer K27.9 Abdominal pain R10.9 BARRY on CPAP G47.33; Z99.89 Nicotine addiction F17.200 Gastric ulcer K25.9
[2023-12-30] VITALS (9 sets, daily range): BP systolic 131–171; BP diastolic 70–89; PULSE 53–690; RESP 16–18; TEMP 36.4–36.8; O2SAT 96–98
[2023-12-30] MEDS: piperacillin-tazobactam 3.375 GM in sodium chloride 0.9% (plus) 50 ML IV ×3 (02:20→23:03)
[2023-12-30] MEDS: pantoprazole 40 MG in sodium chloride 0.9% (plus) 100 ML 20 MG IV (04:08)
[2023-12-30 05:11] LABS: Basophils # 0.1 10^3/uL (0.0-0.1); Basophils % 0.8 %; Eosinophils # 0.2 10^3/uL (0.0-0.8); Eosinophils % 2.4 %; Hematocrit 35.9 % (37-53); Lymphocytes # 1.8 10^3/uL (0.8-4.8); Lymphocytes % 27.2 %; Mean Corpuscular Hemoglobin 30.5 pg (27-33); Mean Corpuscular Volume 89.8 fl (82-101); Mean Platelet Volume 10.4 fL (7.4-10.4); Monocytes # 0.6 10^3/uL (0.2-0.9); Monocytes % 9.4 %; Neutrophils # 3.93 10^3/uL (1.8-7.7); Neutrophils % 59.7 %; Nucleated Red Blood Cells % 0 %; Platelet Count 350 10^3/cmm (157-399); Red Cell Distribution Width 12.5 % (12.1-15.1); White Blood Count 6.58 10^3/uL (3.29-11.43)
[2023-12-30 05:32] LABS: Alanine Aminotransferase 11 U/L (0-41); Albumin Level 3.4 g/dL (3.5-5.2); Alkaline Phosphatase 72 U/L (40-130); Anion Gap 14.3 (5-19); Aspartate Amino Transferase 15 U/L (0-40); Blood Urea Nitrogen 4 mg/dL (6-20); Calcium 8.3 mg/dL (8.5-10.5); Carbon Dioxide 21 mmol/L (22-29); Chloride 111 mmol/L (98-107); Creatinine Clr Calc Pharmacy 154.3748; Globulin 2.7 g/dL (1.3-4.6); Glomerular Filtration Rate 143.2 mL/min (90-130); Glucose 96 mg/dL (65-115); Osmolality Calculated 293 mOsm/kg (285-295); Phosphorus 2.9 mg/dL (2.5-4.5); Potassium 3.3 mmol/L (3.5-5.1); Sodium 143 mmol/L (136-145); Total Bilirubin 0.3 mg/dL (0.15-1.2); Total Protein 6.1 g/dL (6.6-8.7)
--- NOTE | 2023-12-30 08:55 | P.PN_ITS ---
Subjective 2 Subjective: Patient has had a very good progression over the last 24 hours, no significant abdominal pain, tolerating full liquid diet, had a bowel movement. Vitals/I&O/Wt Last Vital Signs Temp 97.5 F L 12/30/23 07:13 Pulse 690 H 12/30/23 08:17 Resp 16 12/30/23 08:17 BP 133/70 12/30/23 07:13 Pulse Ox 98 12/30/23 08:17 O2 Del Method Room Air 12/30/23 08:17 12/29/23 12/30/23 12/30/23 22:59 06:59 14:59 Intake Total 2098.333 / 2916.000 424 / 3340.000 50 / 50 Output Total 1550 / 1550 250 / 1800 Balance 548.333 / 1366.000 174 / 1540.000 50 / 50 Weight last 48 hrs Weight 147 lb 4.8 oz Weight 147 lb 7 oz Physical Exam 2 GI: OTHER: Abdominal exam is benign, abdomen is soft, nontender, nondistended. Data 12/30/23 04:24 12/30/23 04:24 A&P Assessment and plan (1) Abdominal pain: (2) Peptic ulcer: Plan Is a 48-year-old male with a very large gastric ulcer which initial concern for impending perforation. Has been managed with IV PPI drip and sucralfate, after 72 hours of GI rest we have started full liquid diet yesterday after upper GI of the stomach showed no evidence of perforation. Over the last 4 hours he has had excellent progression his abdominal pain is controlled he has been able to move his bowels he is feeling otherwise fine. The plan is to advance to a GI soft diet today, we will also transition from the PPI drip to a twice a day IV pantoprazole. The plan is for discharge home tomorrow on GI soft diet and with high-dose PPI and sucralfate. We will obtain a identity access management architect consult for education regarding GI soft diet and things to avoid with his active gastric ulcer. I have informed the patient that in the next 8 to 12 weeks he will need to return to the hospital for endoscopic evaluation and biopsies of this area of ulceration. Patient shows understanding and is agreeable to it. Attestations 2 Medical Necessity Statement*: Likely discharge tomorrow. Coding Level of Care Code Acute Code for [facility] Diagnoses Abdominal pain R10.9 Peptic ulcer K27.9
[2023-12-30] MEDS: dextrose 5%-sod chloride 0.9% 1,000 ML 100 ML IV (09:15)
[2023-12-30] MEDS: metroNIDAZOLE IV 500 MG/100 ML PREMIX 100 MG IV ×4 (09:18→23:03)
[2023-12-30] MEDS: levothyroxine 100 mcg SDV 25 MCG IVP (09:19)
[2023-12-30] MEDS: sucralfate 1 gm/10 mL Oral Liq UDC PO ×4 (09:19→21:10)
[2023-12-30] MEDS: nicotine 14 mg Patch 1 PATCH TRANSDERMA (09:20)
[2023-12-30] MEDS: pantoprazole 40 mg SDV IVP ×2 (10:51→20:58)
[2023-12-30] MEDS: lidocaine 1% 5 ML in potassium chloride premix 100 ML 52.5 ML IV (10:56)
--- NOTE | 2023-12-30 13:20 | P.PN_ITS ---
Subjective 2 Subjective: Patient was seen this morning, denies any fevers, no chills, no cough, tolerating clear liquid diet, Vitals/I&O/Wt Last Vital Signs Temp 98.0 F 12/30/23 11:15 Pulse 59 L 12/30/23 11:15 Resp 17 12/30/23 11:15 BP 161/82 12/30/23 11:15 Pulse Ox 98 12/30/23 11:15 O2 Del Method Room Air 12/30/23 11:15 12/29/23 12/30/23 12/30/23 22:59 06:59 14:59 Intake Total 2098.333 / 2916.000 1424 / 4340.000 490 / 490 Output Total 1550 / 1550 250 / 1800 Balance 548.333 / 6364.385 7521 / 2540.000 490 / 490 Weight last 48 hrs Weight 66.814 kg Weight 66.877 kg Physical Exam 2 Const: COMMON NORMALS: no acute distress and patient oriented x3 Resp: COMMON NORMALS: normal respiratory effort, No retractions, No use of accessory muscles and clear to auscultation bilaterally AUSCULTATION: clear to auscultation bilaterally Cardio: COMMON NORMALS: regular rate, regular rhythm, S1 normal heart sound present and S2 normal heart sound present RATE: regular rate RHYTHM: r egular rhythm HEART SOUNDS: S1 normal heart sound present and S2 normal heart sound present GI: COMMON NORMALS: Normal to inspection, nondistended, normoactive bowel sounds present and non-tender Extremity: COMMON NORMALS: no pedal edema Neuro: COMMON NORMALS: patient oriented x3 Psych: COMMON NORMALS: mental status grossly normal Data 12/30/23 04:24 12/30/23 04:24 A&P Assessment and plan (1) Peptic ulcer: (2) Abdominal pain: (3) BARRY on CPAP: (4) Nicotine addiction: (5) Gastric ulcer: Plan Gastric ulcer No active signs of perforation Appreciate general surgery recommendations Would avoid NG tube placement Switch to Protonix 40 IV twice daily along sucralfate metronidazole and Zosyn fluid hydration Monitor hemodynamics Patient takes piroxicam for his arthritis Continue IV morphine Full code Transition from clears to GI soft diet ? Moved to medical floors COPD, active smoker, no acute exacerbation Arthritis no acute exacerbation Hypothyroidism Spoke to patient, spoke to nursing staff, spoke to general surgery Attestations 2 Medical Necessity Statement*: Patient requires hospitalization for gastric ulcer Diagnoses Peptic ulcer K27.9 Abdominal pain R10.9 BARRY on CPAP G47.33; Z99.89 Nicotine addiction F17.200 Gastric ulcer K25.9
[2023-12-30] MEDS: amlodipine 10 mg Tablet PO (14:39)
--- NOTE | 2023-12-30 15:16 | PM.MISC ---
Miscellaneous Note Purpose of Documentation: Patient updated Note: Patient doing very well this afternoon, no significant abdominal pain, tolerating soft diet. Abdominal exam is benign. Vital signs have remained stable. ? Plan is for discharge home tomorrow, patient will go home with twice a day PPI and sucralfate 4 times a day. ? Patient is to return to the hospital in 8 to 12 weeks for upper endoscopy to ensure resolution of ulceration and to obtain biopsies. No upper endoscopy was offered during this hospital stay due to exceedingly high risk of perforation. Patient is aware
[2023-12-31 03:15] LABS: Basophils # 0.1 10^3/uL (0.0-0.1); Basophils % 0.7 %; Eosinophils # 0.2 10^3/uL (0.0-0.8); Hematocrit 37.7 % (37-53); Lymphocytes # 2.5 10^3/uL (0.8-4.8); Lymphocytes % 23.3 %; Mean Corpuscular HGB Conc 34.2 g/dL (30-55); Mean Corpuscular Hemoglobin 30.8 pg (27-33); Mean Platelet Volume 10.3 fL (7.4-10.4); Monocytes # 0.8 10^3/uL (0.2-0.9); Monocytes % 7.4 %; Neutrophils # 7.05 10^3/uL (1.8-7.7); Neutrophils % 66.3 %; Nucleated Red Blood Cells % 0 %; Platelet Count 344 10^3/cmm (157-399); Red Blood Count 4.19 10^6/uL (3.85-5.65); Red Cell Distribution Width 12.6 % (12.1-15.1); White Blood Count 10.62 10^3/uL (3.29-11.43)
[2023-12-31 03:34] LABS: Anion Gap 16.6 (5-19); Blood Urea Nitrogen 5 mg/dL (6-20); Calcium 8.6 mg/dL (8.5-10.5); Carbon Dioxide 20 mmol/L (22-29); Chloride 109 mmol/L (98-107); Creatinine Clr Calc Pharmacy 132.3212; Glomerular Filtration Rate 119.9 mL/min (90-130); Glucose 91 mg/dL (65-115); Osmolality Calculated 291 mOsm/kg (285-295); Potassium 3.6 mmol/L (3.5-5.1); Sodium 142 mmol/L (136-145)
[2023-12-31 03:40] VITALS: BP 148/79; PULSE 58; RESP 18; TEMP 36.7; O2SAT 98
[2023-12-31 06:00] VITALS: PULSE 57
[2023-12-31] MEDS: piperacillin-tazobactam 3.375 GM in sodium chloride 0.9% (plus) 50 ML IV (06:39)
[2023-12-31] MEDS: levothyroxine 50 mcg Tablet PO (06:39)
[2023-12-31 08:00] VITALS: BP 127/75; PULSE 58; RESP 16; TEMP 36.8; O2SAT 98
[2023-12-31] MEDS: metroNIDAZOLE IV 500 MG/100 ML PREMIX 100 MG IV (09:01)
[2023-12-31] MEDS: gabapentin 300 mg Capsule PO (09:02)
[2023-12-31] MEDS: sucralfate 1 gm/10 mL Oral Liq UDC PO (09:02)
[2023-12-31] MEDS: nicotine 14 mg Patch 1 PATCH TRANSDERMA (09:02)
[2023-12-31] MEDS: amlodipine 10 mg Tablet PO (09:03)
[2023-12-31 10:11] VITALS: PULSE 61; RESP 15; O2SAT 98
--- NOTE | 2023-12-31 10:38 | P.PN_ITS ---
Subjective 2 Subjective: 48-year-old male who was admitted with a very large gastric ulcer with imaging findings concerning for impending perforation, he was initiated in a PPI drip and sucralfate with very good progression. Over the last 48 hours abdominal pain had completely resolved, patient has been tolerating soft diet, having bowel movements and passing gas he denies any significant nausea vomit or any other symptoms. Vitals/I&O/Wt Last Vital Signs Temp 98.2 F 12/31/23 08:00 Pulse 61 12/31/23 10:11 Resp 15 12/31/23 10:11 BP 127/75 12/31/23 08:00 Pulse Ox 98 12/31/23 10:11 O2 Del Method Room Air 12/31/23 10:11 12/30/23 12/31/23 12/31/23 22:59 06:59 14:59 Intake Total 1735 / 2225 390 / 2615 390 / 390 Output Total 1350 / 1350 425 / 1775 Balance 385 / 875 -35 / 840 390 / 390 Weight last 48 hrs Weight 145 lb Weight 147 lb 4.8 oz Physical Exam 2 GI: OTHER: Abdominal exam is benign, abdomen is soft, nontender, nondistended. Data 12/31/23 02:34 12/31/23 02:34 A&P Assessment and plan (1) Gastric ulcer: Plan Excellent progression after conservative management of large gastric ulcer. Most likely etiology for the ulcer is chronic use of NSAIDs and other pain medication without any GI prophylaxis. Patient has significantly improved since admission, yesterday he was transition to twice a day PPI and remains symptomatic. He has completed a 5-day course of antibiotics. His vital signs are stable and laboratory workup is also stable. I had had extensive discussion with the patient regarding the findings some prognosis as well as warning signs to return to the hospital. I have explained to the patient that we did not pursue endoscopy during this hospital stay due to concerning features on imaging showing a very thin gastric wall which indicates a very high risk for perforation if endoscopic evaluation was pursued. I have explained to the patient that in 8 to 12 weeks I will bring him back to the hospital to do an endoscopy and take biopsies as we need to rule out malignancy or any other concerning pathology causing this ulcer. Although this is less likely since patient's symptoms have responded very well to therapy. I have also Splane to the patient that he will be in 8 to 12 weeks of twice a day PPI and 4 times a day sucralfate to help with healing of his gastric ulcer. Once we repeat endoscopy if there is no evidence of residual ulceration and pathology is negative for any malignancy the plan will be to continue him on once a day proton pump inhibitor indefinitely. I have explained to the patient that in the case of recurrence of symptoms, significant increase in abdominal pain distention nausea or vomit he will have to return to the hospital. We have discussed that if there is concern to progression to perforation this may require surgical exploration and even a partial gastrectomy. Patient and family member show understanding, they will follow-up medication and diet indications, we had to carry him meet up with project builder yesterday who educated on GI bland diet. I will follow-up with the patient in my clinic in 3 weeks to ensure adequate progression. Attestations 2 Medical Necessity Statement*: Cleared for discharge from the general surgery standpoint Coding Level of Care Code Acute Code for [facility] Diagnoses Gastric ulcer K25.9
[2023-12-31] MEDS: pantoprazole 40 mg SDV IVP (10:57)
--- NOTE | 2023-12-31 11:30 | PM.DCS ---
Discharge Providers Date of Admission: 12/26/23 21:34 Date of Discharge: December 31, 2023 Attending Provider at Admission: Natasha Herrera MD Attending Provider at Discharge: George Delacruz MD Primary Care Provider: Joshua Murray MD Diagnoses at Discharge Discharge Diagnosis (1) Gastric ulcer: Status: Acute Reason for Visit Reason for Visit: jace sent ulcer Hospital Course Hospital Course Gerry Frank is a 48 year old male denting with chief complaint abdominal pain. As per the patient he was in usual state of health until 2 weeks ago when he started experiencing abdominal pain which was accompanied by only 1 episode of emesis, he noticed coffee-ground emesis approximately 5 to 7 days ago, symptoms worsened in last 2 to 3 days, PCP ordered CT scan which showed evidence of large gastric ulcer with signs of concerning impending gastric ulcer perforation, he was seen by general surgery in the ER, no acute indication for surgical intervention as of yet as per the surgeon, patient will go to ICU on antibiotics strong Protonix dose Patient is stating that he had EGD in the past when he had a cyst on his thyroid which was removed He is endorsing to smoking on daily basis, he started chewing tobacco when he was 17 years old Drinks occasionally no recreational drug Patient is stating that he came to the hospital when his PCP called for CT abdomen pelvis results today, he is rating his pain 6/10, he ate his lunch today after emesis today Patient was admitted to [facility] for large gastric ulcer, managed medically, on Protonix drip, Carafate, kept n.p.o. for 48 hours, overall remained stable, no clinical evidence of rupture, underwent Gastrografin series, no radiographic evidence of rupture, diet was slowly advanced, tolerated GI soft diet no recurrent abdominal pain, no bloody or black stools no hematemesis. Abdominal exam benign, no guarding, no rebound, no rigidity, no abdominal tenderness. Patient will be discharged on Nexium, Carafate, with a close follow-up with general surgery in 3 weeks. I had extensive discussion with patient about no NSAIDs, no gastric irritants such as coffee or carbonated beverages or spicy foods or anything that makes his stomach upset. If he has any worsening abdominal pain, bloody or black stools, hematemesis, these are life-threatening symptoms for him to come to the emergency room. Plans on EGD in 6 to 8 weeks. Follow-up with primary care provider in 1 week. Follow-up with general surgery in 3 weeks. Advised to abstain from drinking alcohol, or chewing tobacco, advised strongly to quit smoking Physical Exam Const: COMMON NORMALS: no acute distress and patient oriented x3 Resp: COMMON NORMALS: normal respiratory effort, No retractions, No use of accessory muscles and clear to auscultation bilaterally AUSCULTATION: clear to auscultation bilaterally Cardio: COMMON NORMALS: regular rate, regular rhythm, S1 normal heart sound present and S2 normal heart sound present RATE: regular rate RHYTHM: regular rhythm HEART SOUNDS: S1 normal heart sound present and S2 normal heart sound present GI: COMMON NORMALS: Normal to inspection, nondistended, normoactive bowel sounds present and non-tender Extremity: COMMON NORMALS: no pedal edema Neuro: COMMON NORMALS: patient oriented x3 Psych: COMMON NORMALS: mental status grossly normal Discharge Data Studies Completed and Pending Completed Studies During Hospitalization Category Date Time Status FL upper GI gastrografin 00100 Routine Exams 12/29/23 06:58 Completed Pending at discharge Category Date Time Status Basic Metabolic Panel AM LABS Lab 01/01/24 04:00 Ordered Basic Metabolic Panel AM LABS Lab 01/02/24 04:00 Ordered Complete Blood Count w/Auto AM LABS Lab 01/01/24 04:00 Ordered Complete Blood Count w/Auto AM LABS Lab 01/02/24 04:00 Ordered Helicobacter Pylori AG Stool Routine Lab 12/30/23 02:30 Received Laboratory Results WBC 10.62 10^3/uL (3.29-11.43) 12/31/23 02:34 RBC 4.19 10^6/uL (3.85-5.65) 12/31/23 02:34 Hgb 12.90 g/dL (11.27-16.99) 12/31/23 02:34 Hct 37.7 % (37-53) 12/31/23 02:34 MCV 90.0 fl (82-101) 12/31/23 02:34 MCH 30.8 pg (27-33) 12/31/23 02:34 MCHC 34.2 g/dL (30-55) 12/31/23 02:34 RDW 12.6 % (12.1-15.1) 12/31/23 02:34 Plt Count 344 10^3/cmm (157-399) 12/31/23 02:34 MPV 10.3 fL (7.4-10.4) 12/31/23 02:34 Neut % (Auto) 66.3 % 12/31/23 02:34 Lymph % (Auto) 23.3 % 12/31/23 02:34 Shelby % (Auto) 7.4 % 12/31/23 02:34 Eos % (Auto) 2.0 % 12/31/23 02:34 Baso % (Auto) 0.7 % 12/31/23 02:34 Neut # (Auto) 7.05 10^3/uL (1.8-7.7) 12/31/23 02:34 Lymph # (Auto) 2.5 10^3/uL (0.8-4.8) 12/31/23 02:34 Shelby # (Auto) 0.8 10^3/uL (0.2-0.9) 12/31/23 02:34 Eos # (Auto) 0.2 10^3/uL (0.0-0.8) 12/31/23 02:34 Baso # (Auto) 0.1 10^3/uL (0.0-0.1) 12/31/23 02:34 Nucleated RBC % (auto) 0 % 12/31/23 02:34 Nucleated RBCs # 0.0 /100WBC 12/31/23 02:34 Sodium 142 mmol/L (136-145) 12/31/23 02:34 Potassium 3.6 mmol/L (3.5-5.1) 12/31/23 02:34 Chloride 109 mmol/L (98-107) H 12/31/23 02:34 Carbon Dioxide 20 mmol/L (22-29) L 12/31/23 02:34 Anion Gap 16.6 (5-19) 12/31/23 02:34 BUN 5 mg/dL (6-20) L 12/31/23 02:34 Creatinine 0.7 mg/dL (0.7-1.2) 12/31/23 02:34 GFR Calculation 119.9 mL/min (90-130) 12/31/23 02:34 Glucose 91 mg/dL (65-115) 12/31/23 02:34 Calculated Osmolality 291 mOsm/kg (285-295) 12/31/23 02:34 Lactic Acid 1.0 mmol/L (0.5-2.2) 12/26/23 19:20 Calcium 8.6 mg/dL (8.5-10.5) 12/31/23 02:34 Phosphorus 2.9 mg/dL (2.5-4.5) 12/30/23 04:24 Magnesium 2.0 mg/dL (1.7-2.3) 12/30/23 04:24 Total Bilirubin 0.3 mg/dL (0.15-1.2) 12/30/23 04:24 AST 15 U/L (0-40) 12/30/23 04:24 ALT 11 U/L (0-41) 12/30/23 04:24 Alkaline Phosphatase 72 U/L (40-130) 12/30/23 04:24 C-Reactive Protein 18.4 mg/L (0.0-4.9) H 12/27/23 04:38 Total Protein 6.1 g/dL (6.6-8.7) L 12/30/23 04:24 Albumin 3.4 g/dL (3.5-5.2) L 12/30/23 04:24 Globulin 2.7 g/dL (1.3-4.6) 12/30/23 04:24 Lipase 24 U/L (13-60) 12/26/23 19:20 Vitals Last Vital Signs Temp 98.2 F 12/31/23 08:00 Pulse 61 12/31/23 10:11 Resp 15 12/31/23 10:11 BP 127/75 12/31/23 08:00 Pulse Ox 98 12/31/23 10:11 O2 Del Method Room Air 12/31/23 10:11 Discharge Plan Discharge Patient Disposition: Home Condition: Stable Prescriptions: New esomeprazole magnesium [address] for susp in packet 40 mg PO BID 120 Days Qty: 240 0RF sucralfate 100 mg/mL suspension 1 g PO Q6H 56 Days Qty: 2240 0RF amlodipine 10 mg Tablet 10 mg PO DAILY 30 Days Qty: 30 0RF lidocaine 5 % adhesive patch,medicated 1 patch topical DAILY PRN (Reason: back pain) 5 Days Qty: 5 0RF Rx Instructions: leave on most painful area for up to 12 hrs Continued albuterol sulfate 2.5 mg /3 mL (0.083 %) solution for nebulization 2.5 mg inhalation Q6H PRN (Reason: shortness of breath or wheezing) albuterol sulfate [ProAir HFA] 90 mcg/actuation HFA aerosol inhaler 2 puff inhalation Q6H PRN (Reason: shortness of breath or wheezing) Qty: 8.5 2RF lisinopril 5 mg tablet 5 mg PO DAILY Qty: 90 3RF Stiolto Respimat 2.5-2.5 mcg/actuation mist 2 puff inhalation DAILY Qty: 4 0RF lovastatin 10 mg tablet 10 mg PO QPM levothyroxine 50 mcg tablet 50 mcg PO DAILY gabapentin 300 mg capsule 300 mg PO TID azelastine 137 mcg (0.1 %) aerosol,spray 1 spray intranasal BID PRN (Reason: allergies) Rx Instructions: administer into each nostril fluticasone propionate 50 mcg/actuation spray,suspension See Rx Instructions .ROUTE .COMPLEX PRN (Reason: allergies) Rx Instructions: SHAKE LIQUID AND USE 1 SPRAY IN EACH NOSTRIL EVERY 12 HOURS Discontinued piroxicam 20 mg capsule 20 mg PO DAILY Qty: 90 2RF tizanidine 4 mg tablet 4 mg PO TID PRN (Reason: Muscle Spasm) Discharge Orders: Discharge Order (Routine); Ordered 12/31/23 Ordered By: George Delacruz Referrals: Giovanni Marin MD [Physician] - 3 weeks Joshua Murray MD [Primary Care Provider] - 1-3 days (We have notified your physician's clinic of the need for a follow-up appointment to be scheduled. If you have not heard from them within the next 2 business days, please call them directly. ) Discharge Diet: GI Soft Discharge Activity: Resume usual activity Patient Instructions: Opioid Safety Activity Restrictions/Additional Instructions: - Do not use any NSAIDs, such as ibuprofen, Motrin, naproxen, piroxicam ? Do not use carbonated beverages, coffee, spicy foods, anything that would irritate your stomach ? Please adhere to GI soft diet ? If you have any worsening abdominal pain, hematemesis, bloody or black stools, please go to the emergency room ? Please follow-up with primary care provider next week ? Follow-up with surgery in 1 week ? Please stop smoking Discharge Attestations Time Spent in Discharge Care*: greater than 30 min Time Spent in Smoking Cessation: more than 10 minutes Quality Metrics Clinical Quality Measures [ No reported AMI, CVA or VTE this stay] Coding Level of Care Code 31507 Total time (in minutes) for Discharge: 45 Diagnoses Gastric ulcer K25.9
[2023-12-31 12:00] VITALS: BP 159/96; PULSE 61; RESP 15; RESP 16; TEMP 36.7; O2SAT 96
== END 2023-12-31 14:04 | disposition home or self-care (01) | DRG 384 ==
LOC: ER 20:56 → ICU 21:34 → MEDSURG 12-29 18:22
PROVIDERS: Admitting Provider Internal Medicine; Emergency Provider Emergency Medicine; PCP Family Medicine; Visit Provider Family Medicine
DX: K25.9 Gastric ulcer, unspecified as acute or chronic, without hemorrhage or perforation (principal); I95.9 Hypotension, unspecified; E86.0 Dehydration; F17.210 Nicotine dependence, cigarettes, uncomplicated; E03.9 Hypothyroidism, unspecified; J44.9 Chronic obstructive pulmonary disease, unspecified; M06.9 Rheumatoid arthritis, unspecified; M54.9 Dorsalgia, unspecified; G89.29 Other chronic pain
CPT/HCPCS: 36415; 74240; 80048; 80053; 83605; 83690; 83735; 84100; 85025; 86140; 87338; 94640; 94664; 96365; 96366; 96375; 96376; 99285; C9113; J1170; J2270; J2405; J2543; J3480; J3490; J7030; J7042

== ENCOUNTER 2024-01-12 06:55 | Outpatient (CLI) | payer OTHER, SELFPAY ==
--- NOTE | 2024-01-12 07:15 | MR_ITS ---
WS: [id number] MRI LUMBAR SPINE NONCONTRAST TECHNIQUE: Sagittal T1, T2 and STIR imaging. Axial T1 and T2 imaging. CLINICAL INFORMATION: back pain COMPARISON: MRI 05/19/2023 FINDINGS: Mild lumbar curve. No acute compression. Disc desiccation worse at L1-2. A few Schmorl's nodes in the lower thoracic and lumbar spine. L1-L2: Mild disc bulging. Mild facet arthropathy. Spinal canal is patent. Tiny foraminal protrusions unchanged. L2-L3: Mild annular bulging. Mild facet arthropathy. Spinal canal and foramen are patent. L3-L4: Mild annular bulging. Mild facet arthropathy. Tiny RIGHT foraminal protrusion unchanged. LEFT foramen is patent. L4-L5: Mild annular bulging. Mild narrowing of the subarticular recess bilaterally. Mild facet arthr opathy. Spinal canal is patent. Mild RIGHT foraminal narrowing. L5-S1: Mild annular bulging. Spinal canal and foramina are patent. Mild facet arthropathy. Small RIGHT renal cyst. Visualized pelvic bony structures: Normal. Paravertebral soft tissues: Normal. IMPRESSION: Overall no significant changes since 2022. 1. Mild lumbar curve. No acute compression. No high-grade central canal stenosis. 2. Disc space narrowing worse at L1-2 with mild annular bulging. 3. Mild facet arthropathy L3-L5. 4. Mild annular bulging L4-5 with slight narrowing of the subarticular recess. Mild RIGHT L4-5 jarred inal narrowing. 5. No other acute findings.
--- NOTE | 2024-01-12 08:00 | MR_ITS ---
WS: [id number] MRI THORACIC SPINE WITHOUT CONTRAST TECHNIQUE: Sagittal T1, T2 and STIR imaging. Axial T2 imaging. Noncontrast imaging obtained. CLINICAL INFORMATION: back pain COMPARISON: 2018 FINDINGS: Mild thoracic kyphosis. Alignment appears unchanged since 2018. Slight anterolisthesis C7 on T1. No a cute compression fractures. No high-grade central canal stenosis. Cord signal is normal. Mild disc sp benjamin narrowing midthoracic spine at T5-T6, T6-T7, T7-T8. No significant disc extrusions or protrusions . Mild facet arthropathy lower thoracic spine. No significant spinal canal or foraminal narrowing. Normal paravertebral soft tissues. A few incident al nerve root diverticuli at RIGHT T2-3, RIGHT T4-5, and LEFT T10-11. Normal caliber thoracic aorta. Adrenal glands are normal. IMPRESSION: 1. Mild thoracic kyphosis. No acute compression fractures. 2. Cord signal is normal. 3. No significant spinal canal or foraminal narrowing. 4. Mild facet arthropathy in the lower thoracic spine.
== END 2024-01-12 06:56 | disposition home or self-care (01) ==
LOC: RAD 06:55
PROVIDERS: PCP Family Medicine; Visit Provider Orthopaedic Surgery
DX: M47.814 Spondylosis without myelopathy or radiculopathy, thoracic region (principal); M40.204 Unspecified kyphosis, thoracic region; M51.36 Other intervertebral disc degeneration, lumbar region
CPT/HCPCS: 72146; 72148

== ENCOUNTER → 2024-01-31 16:17 | Outpatient (BNVA) | payer OTHER, SELFPAY | PROVIDERS: PCP Family Medicine; Visit Provider Orthopaedic Surgery | DX: M54.9 Dorsalgia, unspecified (principal) | CPT/HCPCS: 36415; 80053; 81003; 85025 ==

== ENCOUNTER 2024-02-24 11:35 | Day surgery (SDC) | payer OTHER, SELFPAY ==
[2024-02-24] VITALS (10 sets, daily range): BP systolic 122–167; BP diastolic 47–89; PULSE 52–82; RESP 17–26; TEMP 36.3–36.7; O2SAT 98–100; BMI 20.7
[2024-02-24] MEDS: sodium chloride 0.9% 1,000 ML 30 ML IV (12:24)
--- NOTE | 2024-02-24 13:21 | ANES.PREANE2 ---
Pre-Anesthetic Assessment Height/Weight: Height 1.83 m Weight 69.4 kg Temp Pulse Resp BP Pulse Ox O2 Del Method 98.0 F 52 L 18 123/74 98 Room Air 02/24/24 11:49 02/24/24 11:49 02/24/24 11:49 02/24/24 11:49 02/24/24 11:49 02/24/24 11:54 Preop Diagnosis: Right-sided L3-4 disc herniation with radiculopathy Operation Date: 02/24/24 13:10 Proposed Procedures p Lumbar Spine Decompression L3-4(Not Applicable) - Lucian Mchugh, DO Familial anesthetic complications: NOne Was Beta Dimitrios taken within 24 hours: N/A Was Clonidine taken within 24 hours: N/A Last intake: Intake Last Liquid Date 02/23/24 Last Liquid Time 21:00 Last Solid Date 02/23/24 Last Solid Time 21:00 Social Tobacco and No alcohol Exam alert, oriented x 3, clear to auscultation bilaterally and regular rate & rhythm Airway Mallampati: Class II Dentition: other (none) Pulmonary Asthma, Chronic Obstructive Pulmonary Disease and Sleep Apnea CV/HEM Hypertension GI Gastroesophageal Reflux Disease Metabolic Hyperlipidemia and Thyroid Disease Anesthetic Plan ASA status: 3 Anesthesia: General Risk of > 500 ml blood loss (7ml/kg in children): No Medications/Allergies Home Medications Medication Instructions Recorded Confirmed Last Taken Type albuterol sulfate 2.5 mg/3 mL 2.5 mg inhalation Q6H PRN 10/23/20 02/24/24 02/22/24 History (0.083 %) solution for nebulization shortness of breath or wheezing albuterol sulfate 90 mcg/actuation 2 puff inhalation Q6H PRN 06/17/23 02/24/24 02/22/24 Rx aerosol inhaler (ProAir HFA) shortness of breath or wheezing #8.5 grams azelastine 137 mcg (0.1 %) nasal 1 spray intranasal BID PRN 12/13/23 02/24/24 02/22/24 History spray aerosol allergies fluticasone propionate 50 See Rx Instructions .Route 12/13/23 02/24/24 02/22/24 History mcg/actuation nasal .COMPLEX PRN allergies spray,suspension levothyroxine 50 mcg tablet 50 mcg PO DAILY 12/13/23 02/24/24 02/24/24 06:00 History tiotropium 2.5 mcg-olodaterol 2.5 2 puff inhalation DAILY #4 grams 12/28/23 02/24/24 02/24/24 Rx mcg/actuation mist for inhalation 06 (Stiolto Respimat) tizanidine 4 mg capsule 4 mg PO TID PRN muscle spasticity 01/23/24 02/24/24 02/24/24 06:00 Rx #90 caps pantoprazole 40 mg tablet,delayed 40 mg PO BID 30 days #60 tabs 02/01/24 02/24/24 02/24/24 10:00 Rx release (Protonix) lisinopril 5 mg tablet 10 mg (2 x 5 mg) PO DAILY #90 tabs 02/17/24 02/24/24 02/23/24 Rx gabapentin 300 mg capsule 600 mg PO TID 02/23/24 02/24/24 02/24/24 06:00 History lovastatin 10 mg tablet 10 mg PO DAILY 02/23/24 02/24/24 02/23/24 History Allergies Allergy/AdvReac Type Severity Reaction Status Date / Time No Known Allergies Allergy Verified 02/17/24 10:14 Current Medications Generic Name Dose Route Start Last Admin Trade Name Freq PRN Reason Stop Dose Admin Sodium Chloride 1,000 mls @ 30 mls/hr 02/24/24 11:45 02/24/24 12:24 Sodium Chloride 0.9% IV 02/25/24 11:44 30 mls/hr .Q24H BHAVIK Administration PFSH Anesthesia Medical History Gastric ulcer Near perforation - 01/2024 Hypothyroidism Chronic back pain Hyperlipemia COPD (chronic obstructive pulmonary disease) Emphysema, unspecified Rheumatoid arthritis Surgical History H/O eye surgery H/O sinus surgery History of thyroid surgery History of placement of ear tubes History of carpal tunnel surgery History of back surgery Family History Grandfather Cancer Melanoma Family/Other Lung disease COPD Grandmother Lung disease COPD Social History Smoking and tobacco/nicotine status: current every day tobacco/nicotine user cigarettes Packs smoked per day: 1 Years cigarettes smoked: 31 [ Other cigarette details: Used chewing tobacco from age [age] - Hx of 1.5 PPD x 31 Years] Quit status (tobacco/nicotine): considering quitting Alcohol intake: former Substance/Drug Use: never Lives independently: Yes Household members: spouse Marital status: Current occupational status: employed Current occupation: [employer] Current occupational exposures/hazards: Yes (Hose Dust) Do you think of yourself as: Straight/Heterosexual Current gender identity: Male Data Anesthesia Cardiac Studies: No Data to Display
--- NOTE | 2024-02-24 14:26 | W.PM.OPSUD ---
Surgery/Procedure H&P Update DATE OF PROCEDURE: February 24, 2024 DATE H&P PERFORMED: 02/17/24 H&P UPDATE INFORMATION: I have reviewed H&P completed within last 30 days, I have examined patient prior to procedure and No changes to prior documentation PREOP DIAGNOSIS: Right-sided L3-4 disc herniation with radiculopathy PLANNED PROCEDURE: Operation Date: 02/24/24 13:10 Proposed Procedures p Lumbar Spine Decompression L3-4(Not Applicable) - Lucian Mchugh DO
[2024-02-24] MEDS: ceFAZolin 2,000 MG in sodium chloride 0.9% (plus) 50 ML 100 MG IV (16:43)
[2024-02-24] MEDS: lidocaine-epi 1% 20 mL INJ INJECTION (17:17)
--- NOTE | 2024-02-24 17:53 | P.OP_ITS ---
Operative Report Date of procedure: February 24, 2024 Pre-op diagnosis: Lumbar stenosis with neurogenic claudication Post-op diagnosis: same Procedure done: L3-4 laminectomy with partial facetectomy Surgeon: Lucian Mchugh DO Estimated blood loss (mL): 5 Procedure: L3-4 laminectomy with partial facetectomy Patient is brought to the operative suite. After undergoing anesthesia they are placed in the prone position. All areas of impingement are well padded. Patient is then prepped and draped in the normal sterile fashion. A skin incision is made over the L3-4 level. This is confirmed under c-arm guidance. A series of dilators are passed and the tubular retractor is docked on the L3 lamina. A bovie is used to clear the soft tissue off the lamina and the L 3/4 facet joint. A high speed dana is then used to perform the laminectomy and take down the medial aspect of the L 3/4 facet joint. A kerrison rongeure was then used to take down the remaining lamina and smooth the edge of the laminectomy up to the point where the ligamentum flavum attaches. Attention was then brought to the medial aspect of the facet joint. The remaining medial aspect of the superior and inferior aspect of the facet joint were taken down with the kerrison from the pedicle of L3 to L 4. The facet carey int had significant hypertrophy. Attention was then brought to the Ligamentum Flavum. The ligament was taken down from the lamina of L3 to L4 and out medially to the remaining facet joint. The ligament was thick. The dura was then exposed. The dura was in good repair. The L3 nerve was then traced with a curette out the L3/4 foramen and found to be adequately decompressed. The L4 nerve was traced with a curette around the L4 pedicle. The lateral recess was opened with a kerrison helping to further decompress the L4 nerve. Wound is then irrigated copiously with saline and surgiflo is used to stop any bleeding. The tubular retractor is removed and the wound is closed with vicryl and monocryl suture. Glue is then used to protect the wound. A sterile dressing is then placed. Patient was then placed in the supine position and transferred to the PACU in stable condition.
--- NOTE | 2024-02-24 19:10 | ANE.PACU2 ---
Inpatient post-anesthesia follow up: Airway intact: Yes Vital signs: Temperature 98.0 F Pulse Rate 56 Respiratory Rate 18 Blood Pressure 122/47 Pulse Oximetry 99 Oxygen Delivery Me thod Room Air Oxygen Flow Rate 6 Fraction of Inspir ed Oxygen Hydration adequate: Yes Nausea and vomiting: No Pain level: 1 Mental status: Baseline
--- NOTE | 2024-02-24 20:07 | XR_ITS ---
WS: [id number] Exam: XR lumbar spine 1V [id number] Date/Time of Exam: 02/24/2024 8:07 PM Reason For Exam: L3-4 DECOMPRESSION/DISCECTOMY; OR PICS AP image of the lumbar spine obtained for preoperative localization purposes.
== END 2024-02-24 19:08 | disposition home or self-care (01) ==
PROVIDERS: PCP Family Medicine; Visit Provider Orthopaedic Surgery
PROC: (CPT 63005; principal; 2024-02-24 12:50)
DX: M48.062 Spinal stenosis, lumbar region with neurogenic claudication (principal); J44.9 Chronic obstructive pulmonary disease, unspecified; G47.30 Sleep apnea, unspecified; I10 Essential (primary) hypertension; K21.9 Gastro-esophageal reflux disease without esophagitis; E78.5 Hyperlipidemia, unspecified; E03.9 Hypothyroidism, unspecified; M06.9 Rheumatoid arthritis, unspecified; F17.210 Nicotine dependence, cigarettes, uncomplicated
CPT/HCPCS: 63047; 72020; 76000; J0690; J1100; J2250; J2405; J2704; J2710; J3010; J3490; J7030

== ENCOUNTER 2024-03-22 09:54 | Day surgery (SDC) | payer OTHER, SELFPAY ==
[2024-03-22 10:09] VITALS: BP 151/75; PULSE 56; RESP 18; TEMP 36.6; O2SAT 98
[2024-03-22] MEDS: sodium chloride 0.9% 1,000 ML 30 ML IV (10:18)
--- NOTE | 2024-03-22 10:33 | ANES.PREANE2 ---
Pre-Anesthetic Assessment Height/Weight: Height 1.83 m Weight 69.4 kg Temp Pulse Resp BP Pulse Ox O2 Del Method 97.9 F 56 L 18 151/75 98 Room Air 03/22/24 10:03/22/24 10:03/22/24 10:09 03/22/24 10:03/22/24 10:03/22/24 10:09 Operation Date: 03/22/24 11:05 Proposed Procedures p EGD 41627, K27.9, K25.9(Not Applicable) - Giovanni Marin MD Familial anesthetic complications: None Was Beta Dimitrios taken within 24 hours: N/A Was Clonidine taken within 24 hours: N/A Last intake: Intake Last Liquid Date 03/21/24 Last Liquid Time 20:30 Last Solid Date 03/21/24 Last Solid Time 20:30 Social Tobacco and No alcohol Exam alert, oriented x 3, clear to auscultation bilaterally and regular rate & rhythm Airway Mallampati: Class I Dentition: other (no teeth) Pulmonary Chronic Obstructive Pulmonary Disease and Sleep Apnea CV/HEM Hypertension GI Peptic Ulcer Disease Metabolic Thyroid Disease Anesthetic Plan ASA status: 3 Anesthesia: MAC Risk of > 500 ml blood loss (7ml/kg in children): No Medications/Allergies Home Medications Medication Instructions Recorded Confirmed Last Taken Type albuterol sulfate 2.5 mg/3 mL 2.5 mg inhalation Q6H PRN 10/23/20 03/20/24 03/21/24 History (0.083 %) solution for nebulization shortness of breath or wheezing albuterol sulfate 90 mcg/actuation 2 puff inhalation Q6H PRN 06/17/23 03/20/24 03/21/24 Rx aerosol inhaler (ProAir HFA) shortness of breath or wheezing #8.5 grams azelastine 137 mcg (0.1 %) nasal 1 spray intranasal BID PRN 12/13/23 03/20/24 03/21/24 History spray aerosol allergies fluticasone propionate 50 1 spray intranasal .Q12HRS PRN 12/13/23 03/20/24 03/21/24 History mcg/actuation nasal allergies spray,suspension levothyroxine 50 mcg tablet 50 mcg PO DAILY 12/13/23 03/20/24 03/22/24 History tizanidine 4 mg capsule 4 mg PO TID PRN muscle spasticity 01/23/24 03/20/24 03/21/24 Rx #90 caps pantoprazole 40 mg tablet,delayed 40 mg PO BID 30 days #60 tabs 02/01/24 03/20/24 03/21/24 Rx release (Protonix) lisinopril 5 mg tablet 10 mg (2 x 5 mg) PO DAILY #90 tabs 02/17/24 03/20/24 03/21/24 Rx gabapentin 300 mg capsule 600 mg PO TID 02/23/24 03/20/24 03/21/24 History lovastatin 10 mg tablet 10 mg PO DAILY 02/23/24 03/20/24 03/21/24 History fluticasone fur. 100 mcg-umeclid 1 inh inhalation DAILY #60 ea 03/02/24 03/20/24 03/21/24 Rx 62.5 mcg-vilant 25 mcg inhalat.powder (Trelegy Ellipta) Allergies Allergy/AdvReac Type Severity Reaction Status Date / Time No Known Allergies Allergy Verified 03/20/24 11:44 Current Medications Generic Name Dose Route Start Last Admin Trade Name Freq PRN Reason Stop Dose Admin Sodium Chloride 1,000 mls @ 30 mls/hr 03/22/24 10:00 03/22/24 10:18 Sodium Chloride 0.9% IV 30 mls/hr .Q24H BHAVIK Administration PFSH Anesthesia Medical History Gastric ulcer Near perforation - 01/2024 Hypothyroidism Chronic back pain Hyperlipemia COPD (chronic obstructive pulmonary disease) Emphysema, unspecified Rheumatoid arthritis Surgical History H/O eye surgery H/O sinus surgery History of thyroid surgery History of placement of ear tubes History of carpal tunnel surgery History of back surgery Family History Grandfather Cancer Melanoma Family/Other Lung disease COPD Grandmother Lung disease COPD Social History Smoking and tobacco/nicotine status: current every day tobacco/nicotine user (1 ppd) cigarettes Packs smoked per day: 1 Years cigarettes smoked: 31 [ Other cigarette details: Used chewing tobacco from age [age] - Hx of 1.5 PPD x 31 Years] Quit status (tobacco/nicotine): considering quitting Alcohol intake: former Substance/Drug Use: never Lives independently: Yes Household members: spouse Marital status: Current occupational status: employed Current occupation: [employer] Current occupational exposures/hazards: Yes (Hose Dust) Do you think of yourself as: Straight/Heterosexual Current gender identity: Male Data Anesthesia Cardiac Studies: No Data to Display
--- NOTE | 2024-03-22 10:50 | W.PM.OPSFHP ---
Same Day Surgery H&P Indication for Procedure/HPI DATE OF PROCEDURE: March 22, 2024 CHIEF COMPLAINT/INDICATIONFOR SURGICAL PROCEDURE: history of gastric ulcer PREOP DIAGNOSIS: history of gastric ulcer PLANNED PROCEDURE: Operation Date: 03/22/24 11:05 Proposed Procedures p EGD 46844, K27.9, K25.9(Not Applicable) - Giovanni Marin MD Medications/Allergies* Home Medications Medication Instructions Recorded Confirmed Type albuterol sulfate 2.5 mg/3 mL 2.5 mg inhalation Q6H PRN 10/23/20 03/20/24 History (0.083 %) solution for nebulization shortness of breath or wheezing azelastine 137 mcg (0.1 %) nasal 1 spray intranasal BID PRN 12/13/23 03/20/24 History spray aerosol allergies fluticasone propionate 50 1 spray intranasal .Q12HRS PRN 12/13/23 03/20/24 History mcg/actuation nasal allergies spray,suspension levothyroxine 50 mcg tablet 50 mcg PO DAILY 12/13/23 03/20/24 History gabapentin 300 mg capsule 600 mg PO TID 02/23/24 03/20/24 History lovastatin 10 mg tablet 10 mg PO DAILY 02/23/24 03/20/24 History Allergies/Adverse Reactions Allergy/AdvReac Type Severity Reaction Status Date / Time No Known Allergies Allergy Verified 03/20/24 11:44 Current Medications: Generic Name Dose Route Start Last Admin Trade Name Freq PRN Reason Stop Dose Admin Sodium Chloride 1,000 mls @ 30 mls/hr 03/22/24 10:00 03/22/24 10:18 Sodium Chloride 0.9% IV 30 mls/hr .Q24H BHAVIK Administration Pertinent History/Comorbid Conditions* Medical History (Updated 02/04/24 @ 18:48 by Joshua Murray MD) Gastric ulcer Near perforation - 01/2024 Hypothyroidism Chronic back pain Hyperlipemia COPD (chronic obstructive pulmonary disease) Emphysema, unspecified Rheumatoid arthritis Surgical History (Updated 03/08/24 @ 09:07 by Lucian Mchugh DO) H/O eye surgery H/O sinus surgery History of thyroid surgery History of placement of ear tubes History of carpal tunnel surgery History of back surgery Family History (Updated 10/23/20 @ 10:54 by Radhika Stark LPN) Family/Other Grandfather Grandmother Lung disease Family/Other COPD Grandmother COPD Cancer Grandfather Melanoma Social History Smoking and tobacco/nicotine status: current every day tobacco/nicotine user (1 ppd) cigarettes Packs smoked per day: 1 Years cigarettes smoked: 31 [ Other cigarette details: Used chewing tobacco from age [age] - Hx of 1.5 PPD x 31 Years] Quit status (tobacco/nicotine): considering quitting Alcohol intake: former Substance/Drug Use: never Lives independently: Yes Household members: spouse Marital status: Current occupational status: employed Current occupation: [employer] Current occupational exposures/hazards: Yes (Hose Dust) Do you think of yourself as: Straight/Heterosexual Current gender identity: Male Pertinent Exam Findings alert, oriented x 3, clear to auscultation bilaterally and regular rate & rhythm Recommendations Surgery/Procedure today Coding Level of Care Code Acute Code for Sheldon Madera
[2024-03-22 11:50] VITALS: BP 105/58; PULSE 55; RESP 10; TEMP 36.6; O2SAT 98
[2024-03-22 12:05] VITALS: BP 126/71; PULSE 56; RESP 16; O2SAT 99
--- NOTE | 2024-03-22 12:27 | ANE.PACU2 ---
Inpatient post-anesthesia follow up: Airway intact: Yes Vital signs: Temperature 98 F Pulse Rate 56 Respiratory Rate 16 Blood Pressure 126/71 Pulse Oximetry 99 Oxygen Delivery Me thod Room Air Oxygen Flow Rate Fraction of Inspir ed Oxygen Hydration adequate: Yes Nausea and vomiting: No Pain level: 1 Mental status: Baseline
== END 2024-03-22 12:15 | disposition home or self-care (01) ==
PROVIDERS: PCP Family Medicine; Visit Provider Surgery
PROC: 0DJ08ZZ Inspection of Upper Intestinal Tract, Via Natural or Artificial Opening Endoscopic (ICD-10-PCS; CPT 43235; principal; 2024-03-22 11:05)
DX: K29.30 Chronic superficial gastritis without bleeding (principal); Z87.11 Personal history of peptic ulcer disease; K31.89 Other diseases of stomach and duodenum; J44.9 Chronic obstructive pulmonary disease, unspecified; G47.30 Sleep apnea, unspecified; I10 Essential (primary) hypertension; E78.5 Hyperlipidemia, unspecified; F17.210 Nicotine dependence, cigarettes, uncomplicated
CPT/HCPCS: 43239; 88305; 88342; J2704; J7030

== ENCOUNTER 2024-10-09 18:48 | Emergency (ER) | payer OTHER, SELFPAY ==
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
[2024-10-09 18:53] VITALS: BP 167/101; PULSE 78; RESP 18; TEMP 36.7; O2SAT 97; BMI 21.9
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
[2024-10-09] MEDS: iohexol 350 mg/mL 500 mL Btl (per mL) IV (19:45)
[2024-10-09 20:08] VITALS: BP 151/70; PULSE 60; RESP 18; O2SAT 94
[2024-10-09] MEDS: orphenadrine 30 mg/mL Inj 2 mL 60 MG IVP (20:21)
[2024-10-09] MEDS: ketorolac 30 mg/mL INJ IVP (20:21)
[2024-10-09 20:27] VITALS: BP 134/60; PULSE 92; RESP 16; O2SAT 100
== END 2024-10-09 20:57 | disposition home or self-care (01) ==
PROVIDERS: Emergency Provider Emergency Medicine; PCP Family Medicine
DX: S16.1XXA Strain of muscle, fascia and tendon at neck level, initial encounter (principal); S40.811A Abrasion of right upper arm, initial encounter; S20.219A Contusion of unspecified front wall of thorax, initial encounter; J44.9 Chronic obstructive pulmonary disease, unspecified; V89.2XXA Person injured in unspecified motor-vehicle accident, traffic, initial encounter
CPT/HCPCS: 70450; 71260; 72125; 73110; 74177; 96374; 96375; 99285; J1885; J2360

== ENCOUNTER → 2024-11-20 08:57 | Outpatient (BNVA) | payer OTHER, SELFPAY | PROVIDERS: PCP Family Medicine; Visit Provider Orthopaedic Surgery | DX: M54.9 Dorsalgia, unspecified (principal) | CPT/HCPCS: 72072; 72100 ==

== ENCOUNTER 2024-12-11 07:42 | Outpatient (CLI) | payer OTHER, SELFPAY ==
--- NOTE | 2024-12-11 08:00 | MR_ITS ---
WS: [id number] MRI THORACIC SPINE noncontrast HISTORY: Back Pain COMPARISON: 01/12/2024 TECHNIQUE: Multiplanar sequences are performed in sagittal and axial planes. Normal thoracic alignment. No fracture or marrow edema. Very mild disc desiccation at T5-6, T6-7 and T7-8. Signal within the cord is normal. There is no syrinx, cord atrophy or enlargement. Conus tapers normally at T12-L1. Minimal concavity of the superior endplate of T2. C7-T1: Shallow LEFT paracentral disc protrusion. No high-grade stenosis. T1-2: Normal. T2-3: Normal. T3-4: Normal. T4-5: Perineural cyst RIGHT foramen. No stenosis. T5-6: Normal. T6-7: Normal. T7-8: Mild facet arthritis. No stenosis. T8-9: Shallow RIGHT paracentral disc protrusion. Bilateral mild facet arthritis. T9-10: Bilateral mild facet arthritis and foraminal narrowing. T10-11: Mild facet arthritis. T11-12: Normal. MR/MR thoracic spin wo con* [id number] IMPRESSION: 1. No high-grade central or foraminal stenosis. 2. Normal signal within the cord. 3. Shallow LEFT paracentral disc protrusion at C7-T1. 4. Shallow RIGHT paracentral disc protrusion at T8-9.
--- NOTE | 2024-12-11 08:45 | MR_ITS ---
WS: [id number] MRI LUMBAR SPINE NONCONTRAST HISTORY: Back Pain, prior spine surgery. COMPARISON: 01/12/2024 TECHNIQUE: Sagittal and axial multisequence imaging is submitted. Straightening of the normal lumbar lordosis. Straightening most significant at L1-2. There is moderate disc space narrowing at L1-2 with reactive marrow edema in the adjacent endplates. Schmorl's nodes defects. Mild disc desiccation at L2-3. Conus terminates normally at L1-2 disc level. L1-L2: Diffuse annular disc bulging. Mild facet arthritis. Small foraminal disc protrusions. No stenosis. L2-L3: Mild disc bulging. Mild facet arthritis. Bilateral perineural nerve root sleeve diverticulum. L3-L4: Mild annular disc bulging with ligamentum flavum and facet arthritis. RIGHT foraminal disc protrusion has decreased in size. There is a new RIGHT hemilaminectomy defect. No stenosis. L4-L5: Mild annular disc bulging, ligamentum flavum and facet arthritis. Mild bilateral foraminal stenosis. Minimal encroachment upon the subarticular recesses as seen before. L5-S1: Mild disc bulging and facet arthritis. Minimal foraminal narrowing. Paravertebral soft tissues are normal. MR/MR lumbar spine wo con* [id number] IMPRESSION: 1. No high-grade central or foraminal stenosis. 2. New RIGHT hemilaminectomy defect at L3-4. 3. Degenerative disc disease resulting in asymmetric disc space narrowing at L 1-2 with reactive marrow edema in the endplates. 4. RIGHT foraminal disc protrusion at L3-4 is decreased in size since 4. 5. Minimal subarticular recess narrowing at L4-5. 6. Mild bilateral foraminal stenosis at L4-5 and L5-S1.
== END 2024-12-11 07:43 | disposition home or self-care (01) ==
LOC: RAD 07:43
PROVIDERS: PCP Family Medicine; Visit Provider Orthopaedic Surgery
DX: M51.369 Other intervertebral disc degeneration, lumbar region without mention of lumbar back pain or lower extremity pain (principal); M96.89 Other intraoperative and postprocedural complications and disorders of the musculoskeletal system; R93.7 Abnormal findings on diagnostic imaging of other parts of musculoskeletal system; M51.26 Other intervertebral disc displacement, lumbar region; M48.061 Spinal stenosis, lumbar region without neurogenic claudication; M48.07 Spinal stenosis, lumbosacral region; M51.46 Schmorl's nodes, lumbar region; M47.896 Other spondylosis, lumbar region; M24.28 Disorder of ligament, vertebrae; M51.379 Other intervertebral disc degeneration, lumbosacral region without mention of lumbar back pain or lower extremity pain; G96.191 Perineural cyst; M47.894 Other spondylosis, thoracic region
CPT/HCPCS: 72146; 72148

== ENCOUNTER 2025-04-24 07:26 | Outpatient (RCR) | payer OTHER, SELFPAY | END 2025-05-02 23:55 | disposition home or self-care (01) | LOC: SPT 07:26 | PROVIDERS: Visit Provider Orthopaedic Surgery | DX: M54.50 Low back pain, unspecified (principal); G89.29 Other chronic pain | CPT/HCPCS: 97110; 97161; G0283 ==

== ENCOUNTER 2025-05-03 05:00 | Outpatient (RCR) | payer OTHER, SELFPAY | END 2025-05-31 10:02 | disposition home or self-care (01) | LOC: SPT 05:00 | PROVIDERS: Visit Provider Orthopaedic Surgery | DX: M54.50 Low back pain, unspecified (principal) | CPT/HCPCS: 97110; G0283 ==

== ENCOUNTER → 2025-05-21 08:52 | Outpatient (BNVA) | payer OTHER, SELFPAY | PROVIDERS: PCP Family Medicine; Visit Provider Student in an Organized Health Care Education/Training Program | DX: R20.0 Anesthesia of skin (principal); R20.2 Paresthesia of skin | CPT/HCPCS: 73130 ==

== ENCOUNTER → 2025-06-06 07:52 | Outpatient (BNVA) | payer OTHER, SELFPAY | PROVIDERS: PCP Family Medicine; Visit Provider Orthopaedic Surgery | DX: M54.2 Cervicalgia (principal) | CPT/HCPCS: 72050 ==

== ENCOUNTER 2025-06-20 08:17 | Outpatient (CLI) | payer OTHER, SELFPAY ==
--- NOTE | 2025-06-20 08:45 | MR_ITS ---
WS: [id number] MRI CERVICAL SPINE NONCONTRAST TECHNIQUE: Sagittal T1, T2 and STIR imaging. Axial T2, gradient, and fiesta imaging. CLINICAL INFORMATION: cervical pain COMPARISON: MRI 2018 FINDINGS: Straightening of the normal cervical lordosis. Slight anterolisthesis C7 on T1. Cord signal is normal. No high-grade central canal stenosis. Disc narrowing in the mid cervical spine has significantly progressed since 2018 C2-C3: Mild facet arthropathy. C3-C4: Mild facet arthropathy. C4-C5: Disc osteophyte complex with endplate ridging. Mild LEFT foraminal narrowing. Mild facet arthropathy. C5-C6: Disc osteophyte complex. Moderate LEFT bony foraminal narrowing. Moderate facet arthropathy. C6-C7: Disc osteophyte complex. Mild to moderate LEFT foraminal narrowing. C7-T1: Grade 1 anterolisthesis. LEFT foraminal disc osteophyte protrusion with moderate LEFT foraminal narrowing. Impingement on the exiting LEFT C8 nerve root. Small LEFT facet effusion Visualized brain stem structures: Normal. Prevertebral soft tissues: Normal. MR/MR cervical spin wo con* [id number] IMPRESSION: 1. Straightening of the normal cervical lordosis. Grade 1 anterolisthesis C7 o n T1. 2. LEFT foraminal disc osteophyte protrusion C7-T1 impinges the exiting LEFT C 8 nerve root 3. Mild to moderate bony foraminal narrowing LEFT C5-C6 and LEFT C6-C7.
== END 2025-06-20 08:18 | disposition home or self-care (01) ==
LOC: RAD 08:18
PROVIDERS: PCP Family Medicine; Visit Provider Orthopaedic Surgery
DX: M54.2 Cervicalgia (principal); M48.02 Spinal stenosis, cervical region; M25.78 Osteophyte, vertebrae; M43.12 Spondylolisthesis, cervical region; M43.14 Spondylolisthesis, thoracic region
CPT/HCPCS: 72141

== ENCOUNTER → 2025-07-04 11:47 | Outpatient (BNVA) | payer OTHER, SELFPAY | PROVIDERS: PCP Family Medicine; Visit Provider Orthopaedic Surgery | DX: M54.2 Cervicalgia (principal) | CPT/HCPCS: 36415; 80053; 81001; 85025 ==

== ENCOUNTER → 2025-07-08 15:57 | Outpatient (BNVA) | payer OTHER, SELFPAY | PROVIDERS: PCP Family Medicine; Visit Provider Family Medicine | DX: Z01.818 Encounter for other preprocedural examination (principal) | CPT/HCPCS: 81000; 87086 ==

== ENCOUNTER 2025-07-22 05:55 | Day surgery (SDC) | payer OTHER, SELFPAY ==
--- NOTE | 2025-07-21 16:53 | ANES.PREANE2 ---
Pre-Anesthetic Assessment Height/Weight: Height 6 ft Preop Diagnosis: Numbness/tingling in upper extremities Operation Date: 07/22/25 07:00 Proposed Procedures p Cervical Laminectomy Laminectomy Cervical C7/T1(Not Applicable) - Lucian Mchugh, DO Was Beta Dimitrios taken within 24 hours: N/A Was Clonidine taken within 24 hours: N/A Social Tobacco and No alcohol Exam alert, oriented x 3 and regular rate & rhythm Airway Submandibular: within normal limits Cervical ROM: Other (Limited due to pain) Mallampati: Class I Comments: Comments: Edentulous Anesthetic Plan ASA status: 3 Anesthesia: General Other: No prior issues with anesthesia NPO since yesterday evening History of hypertension on lisinopril Hypothyroidism on Synthroid. S/p thyroidectomy GERD, controlled with esomeprazole COPD, smoker BARRY stopped using CPAP Labs reviewed from 07/04/2025 and acceptable for procedure EKG showing sinus bradycardia Plan for GETA Medications/Allergies Home Medications ?Medication ?Instructions ?Recorded ?Confirmed ?Last Taken ?Type albuterol sulfate 2.5 mg/3 mL 2.5 mg inhalation Q6H PRN 10/23/20 07/18/25 07/21/25 14:00 History (0.083 %) solution for nebulization shortness of breath or wheezing albuterol sulfate 90 mcg/actuation 2 puff inhalation Q6H PRN 06/17/23 07/18/25 07/21/25 14:00 Rx aerosol inhaler (ProAir HFA) shortness of breath or wheezing #8.5 grams azelastine 137 mcg (0.1 %) nasal 1 spray intranasal BID PRN 12/13/23 07/18/25 04/17/25 History spray allergies fluticasone propionate 50 1 spray intranasal .Q12HRS PRN 12/13/23 07/18/25 07/21/25 14:00 History mcg/actuation nasal allergies spray,suspension lisinopril 5 mg tablet 10 mg (2 x 5 mg) PO DAILY #90 tabs 02/17/24 07/18/25 07/21/25 14:00 Rx levothyroxine 50 mcg tablet See Rx Instructions .Route 08/07/24 07/18/25 07/21/25 14:00 Rx .COMPLEX #90 tabs esomeprazole magnesium 20 mg 20 mg PO DAILY 01/01/25 07/18/25 07/21/25 14:00 History capsule,delayed release (Nexium) fluticasone fur. 100 mcg-umeclid 1 inh inhalation DAILY #60 ea 02/11/25 07/18/25 07/21/25 14:00 Rx 62.5 mcg-vilant 25 mcg inhalat.powder (Trelegy Ellipta) lovastatin 10 mg tablet See Rx Instructions .Route 02/14/25 07/18/25 07/21/25 14:00 Rx .COMPLEX #90 tabs gabapentin 300 mg capsule See Rx Instructions .Route 05/02/25 07/18/25 07/22/25 04:15 Rx .COMPLEX #180 caps citalopram 10 mg tablet 10 mg PO DAILY #30 tabs 05/30/25 07/18/25 07/21/25 14:00 Rx fluticasone fur. 100 mcg-umeclid 100 inhalation 07/22/25 Unknown History 62.5 mcg-vilant 25 mcg inhalat.powder (Trelegy Ellipta) Allergies Allergy/AdvReac Type Severity Reaction Status Date / Time No Known Allergies Allergy Verified 07/22/25 06:04 [facility] Anesthesia Medical History Gastric ulcer Near perforation - 01/2024 Hypothyroidism Chronic back pain Hyperlipemia COPD (chronic obstructive pulmonary disease) Emphysema, unspecified Rheumatoid arthritis Surgical History H/O eye surgery H/O sinus surgery History of thyroid surgery History of placement of ear tubes History of carpal tunnel surgery History of back surgery Family History Grandfather Cancer Melanoma Family/Other Lung disease COPD Grandmother Lung disease COPD Social History Smoking and tobacco/nicotine status: current every day tobacco/nicotine user cigarettes Packs smoked per day: 1 Years cigarettes smoked: 31 [ Other cigarette details: Used chewing tobacco from age [age] - Hx of 1.5 PPD x 31 Years] Quit status (tobacco/nicotine): considering quitting Alcohol intake: former Substance/Drug Use: never Lives independently: Yes Household members: spouse Marital status: Current occupational status: employed Current occupation: [employer] Current occupational exposures/hazards: Yes (Hose Dust) Do you think of yourself as: Straight/Heterosexual Current gender identity: Male
[2025-07-22] VITALS (16 sets, daily range): BP systolic 123–156; BP diastolic 60–84; PULSE 55–79; RESP 16–18; TEMP 36.1–36.4; O2SAT 95–100; BMI 22.1
--- NOTE | 2025-07-22 06:40 | W.PM.OPSUD ---
Surgery/Procedure H&P Update DATE OF PROCEDURE: July 22, 2025 DATE H&P PERFORMED: 07/04/25 H&P UPDATE INFORMATION: I have reviewed H&P completed within last 30 days, I have examined patient prior to procedure and No changes to prior documentation PREOP DIAGNOSIS: Numbness/tingling in upper extremities PLANNED PROCEDURE: Operation Date: 07/22/25 07:00 Proposed Procedures p Cervical Laminectomy Laminectomy Cervical C7/T1(Not Applicable) - Lucian Mchugh DO
[2025-07-22] MEDS: ceFAZolin 2,000 mg SDV 2000 MG IVP (06:58)
[2025-07-22] MEDS: lidocaine-epi 1% 20 mL INJ INJECTION (07:38)
--- NOTE | 2025-07-22 08:07 | PM.OP ---
Operative Report Date of procedure: July 22, 2025 Pre-op diagnosis: Cervical stenosis with radiculopathy Post-op diagnosis: same Procedure done: C7/T1 laminectomy with partial facetectomy and foraminotomy Surgeon: Lucian Mchugh DO Estimated blood loss (mL): 5 Procedure: C7/T1 laminectomy with partial facetectomy and foraminotomy Patient is brought to the operative suite. After undergoing anesthesia they are placed in the prone position. All areas of impingement are well padded. Patient is then prepped and draped in the normal sterile fashion. A skin incision is made over the C7/T1 level. This is confirmed under c-arm guidance. A series of dilators are passed and the tubular retractor is docked on the C7 lamina. A bovie is used to clear the soft tissue off the lamina and the C7/T1 facet joint. A high speed dana is then used to perform the laminectomy and take down the medial aspect of the C7/T1 facet joint. A kerrison rongeure was then used to take down the remaining lamina and smooth the edge of the laminectomy up to the point where the ligamentum flavum attaches. Attention was then brought to the medial aspect of the facet joint. The remaining medial aspect of the superior and inferior aspect of the facet joint were taken down with the kerrison from the pedicle of C7 to T1. The facet joint had significant hypertrophy. Attention was then brought to the Ligamentum Flavum. The ligament was taken down from the lamina of C7 to T1 and out medially to the remaining facet joint. The ligament was thin. The dura was then exposed. The dura was in good repair. The C8 nerve was then traced with a curette out the C7/T1 foramen and found to be adequately decompressed. The T1 nerve was traced with a curette around the L T1 pedicle. The lateral recess was opened with a kerrison helping to further decompress the T1 nerve. Wound is then irrigated copiously with saline and surgiflo is used to stop any bleeding. The tubular retractor is removed and the wound is closed with vicryl and monocryl suture. Steri strips were applied. A sterile dressing is then placed. Patient was then placed in the supine position and transferred to the PACU in stable condition.
[2025-07-22] MEDS: fentaNYL 50 mcg/mL INJ 2mL IVP (08:29)
[2025-07-22] MEDS: HYDROcodone-acetaminophen 5-325 mg Tablet 2 TAB PO (09:09)
--- NOTE | 2025-07-22 09:39 | ANE.PACU2 ---
Inpatient post-anesthesia follow up: Airway intact: Yes Vital signs: Temperature 97.0 F Pulse Rate 69 Respiratory Rate 18 Blood Pressure 149/73 Pulse Oximetry 98 Oxygen Delivery Me thod Room Air Oxygen Flow Rate 10 Fraction of Inspir ed Oxygen Hydration adequate: Yes Nausea and vomiting: No Pain level: 1 Mental status: Baseline
== END 2025-07-22 09:39 | disposition home or self-care (01) ==
PROVIDERS: PCP Family Medicine; Visit Provider Orthopaedic Surgery
PROC: (CPT 63001; principal; 2025-07-22 07:00)
DX: M48.02 Spinal stenosis, cervical region (principal); M54.12 Radiculopathy, cervical region; K21.9 Gastro-esophageal reflux disease without esophagitis; I10 Essential (primary) hypertension; E03.9 Hypothyroidism, unspecified; J44.9 Chronic obstructive pulmonary disease, unspecified; G47.33 Obstructive sleep apnea (adult) (pediatric); M06.9 Rheumatoid arthritis, unspecified; F17.210 Nicotine dependence, cigarettes, uncomplicated
CPT/HCPCS: 63045; 72020; 76000; J0690; J1100; J1885; J2250; J2371; J2405; J2704; J3010; J3490; J7030; J9999

== ENCOUNTER 2025-07-23 17:36 | Emergency (ER) | payer OTHER, SELFPAY ==
--- OUTSIDE RECORDS SUMMARY | 2024-03-24 04:00 | XMS_ITS ---
Author Organization [facility] Address [address] [place] [address] Care Team Providers Care Dough Cutter Name Role Phone SYLVAIN Oconnor APRN, Larry Primary Care Provider Unav Eduin Young Unavailable [phone] Bobo Borrero Unavailable Unavailable Migration, Provider Unavailable Unavailable REASON FOR VISIT EMR-Domingo Encounters Encounter Location Date Provider Diagnosis Migrated_Facility 0 0 03/24/2024 Provider Migration Plan Of Treatment No Information Progress Notes * Gerry SCHUMACHER VDOB:[birth year] (49 yo M)Acc No.[id number]:03/24/2024 Patient: Andrez MCKEONGerry [place] V :1975 A ge:48 Y S ex:Male Address:[address] [place] [address] [address], [place] [address] Subjective: * Chief Complaints: * E MR-Domingo * * Date:
--- OUTSIDE RECORDS SUMMARY | 2024-03-25 04:00 | XMS_ITS ---
Author Organization [facility] Address [address] [place] [address] Care Team Providers Care Collator Hand Name Role Phone SYLVAIN Oconnor APRN, Larry Primary Care Provider Eduin Brown Unavailable [phone] Bobo Borrero Unavailable Unavailable Migration, Provider Unavailable Unavailable REASON FOR VISIT EMR-[facility]ingo Medications Medication SIG (Take, Route, Frequency, Duration) Notes Start Date End Date Status Levothyroxine Sodium 0.05 MG Oral Tablet *Reorder from [facility] for eRx and Interaction Alerts* 08/16/2019 11/14/2019 Active Gabapentin (Once-Daily) 300 MG Tablet Oral 08/16/2019 09/15/2019 Active tiZANidine HCl 4 MG Tablet Oral 08/16/2019 09/15/2019 Active Lovastatin 10 MG Oral Tablet *Reorder from [facility] for eRx and Interaction Alerts* 08/16/2019 11/14/2019 Active Piroxicam 20 MG Oral Capsule *Reorder from [facility] for eRx and Interaction Alerts* 08/16/2019 09/15/2019 Active HYDROcodone-Acetamino phen 10-325 MG Tablet Oral 08/16/2019 09/15/2019 Active Sulfamethoxazole-Trim ethoprim 800-160 MG Tablet Oral 12/25/2019 12/26/2019 Active Social History Social History Additional Details Category Social Info Options Details Migrated Social History Migrated Social History Smoking Status : Current every day smoker , History of tobacco use : Current every day smoker Encounters Encounter Location Date Provider Diagnosis Migrated_Facility 0 0 03/25/2024 Provider Migration Plan Of Treatment No Information Progress Notes * Gerry SCHUMACHER VDOB:[birth year] (49 yo M)Acc No.[id number]:03/25/2024 Patient: Gerry AGUIRRE V :1975 A ge:48 Y S ex:Male Address:[address] [place] [address] Subjective: * Chief Complaints: * E MR-Domingo * Family History: F ather: PRN - Father: :: Cancer,,known absent . * Social History: M igrated Social History: M igrated Social History: Smoking Status : Current every day smoker , History of tobacco use : Current every day smoker. * Medications: T akingHYDROcodone-Acetaminophen 10-325 MG Tablet Oral , stop date 09/15/2019Sulfamethoxazole-Trimethoprim 800-160 MG Tablet Oral , stop date 12/26/2019tiZANidine HCl 4 MG Tablet Oral , stop date 09/15/2019Gabapentin (Once-Daily) 300 MG Tablet Oral , stop date 09/15/2019Levothyroxine Sodium 0.05 MG Oral Tablet , stop date 11/14/2019, Notes to Pharmacist: *Reorder from [facility] for eRx and Interaction Alerts*Piroxicam 20 MG Oral Capsule , stop date 09/15/2019, Notes to Pharmacist: *Reorder from [facility] for eRx and Interaction Alerts*Lovastatin 10 MG Oral Tablet , stop date 11/14/2019, Notes to Pharmacist: *Reorder from [facility] for eRx and Interaction Alerts*Taking HYDROcodone-Acetaminophen 10-325 MG Tablet Oral , stop date 09/15/2019Taking Sulfamethoxazole-Trimethoprim 800-160 MG Tablet Oral , stop date 12/26/2019Taking tiZANidine HCl 4 MG Tablet Oral , stop date 09/15/2019Taking Gabapentin (Once-Daily) 300 MG Tablet Oral , stop date 09/15/2019Taking Levothyroxine Sodium 0.05 MG Oral Tablet , stop date 11/14/2019, Notes to Pharmacist: *Reorder from [facility] for eRx and Interaction Alerts*Taking Piroxicam 20 MG Oral Capsule , stop date 09/15/2019, Notes to Pharmacist: *Reorder from [facility] for eRx and Interaction Alerts*Taking Lovastatin 10 MG Oral Tablet , stop date 11/14/2019, Notes to Pharmacist: *Reorder from [facility] for eRx and Interaction Alerts* * * Date:
[2025-07-23 17:40] VITALS: BP 160/85; PULSE 60; TEMP 36.6; O2SAT 99
--- NOTE | 2025-07-23 17:58 | ED_ITS ---
HPI - Neck Pain/Injury General: Chief Complaint: Neck Pain/Injury Stated Complaint: Post Neck surg fell having neck pain Time Seen by Provider: 07/23/25 17:47 History of Present Illness: Patient is 49-year-old male with C7/T1 laminectomy with partial facetectomy and foraminotomy yesterday, ports to the ED with neck pain after jolting. Patient went out to feed his goats, states there was just 4 inches of feed in the bottom of a bucket, a goat caused him to trip forward, at which time he caught himself however he was jolted forward. This occurred at 2:30 PM today. He did not contact his surgeon. He states the pain has gotten worse, his neck is stiffer, and he has pain radiating down his right arm. Associated symptoms: Denies nausea Related Data Home Medications ?Medication ?Instructions ?Recorded ?Confirmed albuterol sulfate 2.5 mg/3 mL 2.5 mg inhalation Q6H CO N 10/23/20 07/18/25 (0.083 %) solution for nebulization shortness of breat h or wheezing azelastine 137 mcg (0.1 %) nasal 1 spray intranasal BI D PRN 12/13/23 07/18/25 spray allergies fluticasone propionate 50 1 spray intranasal .Q12HRS P RN 12/13/23 07/18/25 mcg/actuation nasal allergies spray,suspension esomeprazole magnesium 20 mg 20 mg PO DAILY 01/01/25 1 capsule,delayed release (Nexium) fluticasone fur. 100 mcg-umeclid 100 inhalation 62.5 mcg-vilant 25 mcg inhalat.powder (Trelegy Ellipta) Previous Rx's ?Medication ?Instructions ?Recorded albuterol sulfate 90 mcg/actuation 2 puff inhalation Q 6H PRN 06/17/23 aerosol inhaler (ProAir HFA) shortness of breath or wh eezing #8.5 grams lisinopril 5 mg tablet 10 mg (2 x 5 mg) PO DAILY #9 0 tabs 02/17/24 levothyroxine 50 mcg tablet See Rx Instructions .Route 08/07/24 .COMPLEX #90 tabs fluticasone fur. 100 mcg-umeclid 1 inh inhalation FABIAN Y #60 ea 02/11/25 62.5 mcg-vilant 25 mcg inhalat.powder (Trelegy Ellipta) lovastatin 10 mg tablet See Rx Instructions .Route 0 02/14/25 .COMPLEX #90 tabs gabapentin 300 mg capsule See Rx Instructions .Route 0 05/02/25 .COMPLEX #180 caps citalopram 10 mg tablet 10 mg PO DAILY #30 tabs 05/04 05/27 hydrocodone 5 mg-acetaminophen 325 1 - 2 tab PO .Q4-6H #40 tabs 07/22/25 mg tablet methocarbamol 750 mg tablet 750 mg PO Q8H PRN muscle s pasm #30 07/23/25 tabs Allergies Allergy/AdvReac Type Severity Reaction Status Date / Time No Known Allergies Allergy Verified 07/23/25 17:46 Review of Systems General: Reports: 10 or more systems reviewed and unremarkable except in HPI and below Const: Denies: fever(s) or chills Card: Denies: chest pain or orthopnea Resp: Denies: dyspnea, productive cough or wheezing GI: Denies: abdominal pain, nausea or vomiting Musc: Reports: neck pain, joint pain, joint stiffness and limited range of motion; Denies: joint swelling Skin/Breast: Denies: rash, pruritus or dry skin Neuro: Denies: numbness in extremities or weakness in extremities Psych: Denies: anxiety Reid/Lymph: Denies: easy bruising or easy bleeding PFSH ED PFSH: Medical History (Updated 07/23/25 @ 20:25 by SIVA Bowman) Gastric ulcer Near perforation - 01/2024 Hypothyroidism Chronic back pain Hyperlipemia COPD (chronic obstructive pulmonary disease) Emphysema, unspecified Rheumatoid arthritis Surgical History H/O eye surgery H/O sinus surgery History of thyroid surgery History of placement of ear tubes History of carpal tunnel surgery History of back surgery Family History Grandfather Cancer Melanoma Family/Other Lung disease COPD Grandmother Lung disease COPD Social History Smoking and tobacco/nicotine status: current every day tobacco/nicotine user cigarettes Packs smoked per day: 1 Years cigarettes smoked: 31 [ Other cigarette details: Used chewing tobacco from age [age] - Hx of 1.5 PPD x 31 Years] Quit status (tobacco/nicotine): considering quitting Alcohol intake: former Substance/Drug Use: never Lives independently: Yes Household members: spouse Marital status: Current occupational status: employed Current occupation: [employer] Current occupational exposures/hazards: Yes (Hose Dust) Do you think of yourself as: Straight/Heterosexual Current gender identity: Male Physical Exam Const: COMMON NORMALS: no acute distress, patient oriented x3, no limitations and healthy appearing HENMT: COMMON NORMALS: normocephalic and TM's normal bilaterally HEAD & SCALP: normocephalic TYMPANIC MEMBRANE: TM's normal bilaterally Neck/C-Spine: COMMON NORMALS: full ROM, no lymphadenopathy, supple and no meningeal signs GENERAL: Yes normal visual inspection, Yes trachea midline, No anterior neck swelling and Yes tender (Midline) CERVICAL SPINE: Yes Paracervical spasm Lymph: LYMPHATIC: no lymphadenopathy noted Chest: COMMONS NORMALS: normal inspection of the chest Resp: COMMON NORMALS: normal respiratory effort, No retractions and clear to auscultation bilaterally AUSCULTATION: clear to auscultation bilaterally Cardio: COMMON NORMALS: regular rate and regular rhythm RATE: regular rate RHYTHM: regular rhythm GI: COMMON NORMALS: Normal to inspection, nondistended, normoactive bowel sounds present, Soft to palpation, non-tender and No hepatosplenomegaly present PALPATION: Yes Soft to palpation and Yes No hepatosplenomegaly present : COMMON NORMALS: Yes no CVA tenderness BLADDER/KIDNEY EXAM: Yes no CVA tenderness Back/Pelvis: COMMON NORMALS: no CVA tenderness Extremity: COMMON NORMALS: normal to inspection, full ROM and capillary refill normal Neuro: COMMON NORMALS: patient oriented x3 MENINGEAL SIGNS: Yes no meningeal signs Course Reevaluation(s): Reevaluation #1: Improved after Toradol/Norflex. No shortness of breath confirmed. Consultations: Consultation #1: Discussed with Dr. Th[facility] with question of pneumothorax. Will order CT of chest. Vital Signs: Vital signs: Vital Signs Temperature 97.9 F 07/23/25 17:40 Pulse Rate 56 L 07/23/25 20:00 Blood Pressure 150/76 07/23/25 20:00 Pulse Oximetry 98 07/23/25 20:00 Oxygen Delivery Me thod Room Air 07/23/25 20:00 MDM - Neck Pain/Injury Medical Decision Making Patient is a 49-year-old male that went out to put his go by nearly tripping on a goat. He had pain immediately however this is worsened since 2:30 PM with now radiation down his right arm. Will obtain a CT of his neck obtaining C7/T1, and discussed with Dr. Mchugh. Discussed with patient to maintain compliance with not lifting over half a gallon of milk and not feeding his animals. Lab Data Radiology Impressions Cervical Spine CT 07/23/25 18:07 IMPRESSION: No acute cervical spinal fracture identified. There are tiny foci of air in the region of the right apical pleural space suspicious for a tiny pneumothorax. Recent appearing left-sided hemilaminectomy change C6-C7. ADDENDUM: 07/23/25 0453 THIS REPORT CONTAINS FINDINGS THAT MAY BE CRITICAL TO PATIENT CARE. The findings were verbally communicated via telephone conference with TABBY TOURE at 6:49 PM CDT on 07/23/2025. The findings were acknowledged and understood. Chest CT 07/23/25 18:49 IMPRESSION: 1. No acute chest trauma identified. 2. There is evidence of recent cervical spine surgery, detailed on the same-day CT cervical spine. Adjacent areas of air are probably due to postop air, including near the right pleura. There is no actual pneumothorax identified. 3. Chronic lung findings above. A few small lung nodules may be reassessed in six-months. COMMENTS: The presence of pulmonary emphysema on CT is an independent risk factor for lung cancer. In the absence of a history or active diagnosis of lung cancer, it is recommended that this patient with emphysema be evaluated for enrollment in a low dose CT lung cancer screening program. REFERENCES: Julianna H, et al. Guidelines for Management of Incidental Pulmonary Nodules Detected on CT Images: From the Fleischner Society 2017. Radiology. 2017;284(1):228-243. All radiology interpretation(s) finalized by discharge Discharge Plan Discharge Patient Disposition: Home Clinical Impression: Neck pain with history of cervical spinal surgery, Noncompliance, Emphysematous bleb of lung, Pulmonary nodule Condition: Stable Prescriptions: New methocarbamol 750 mg tablet 750 mg PO Q8H PRN (Reason: muscle spasm) Qty: 30 0RF No Action albuterol sulfate 2.5 mg /3 mL (0.083 %) solution for nebulization 2.5 mg inhalation Q6H PRN (Reason: shortness of breath or wheezing) albuterol sulfate [ProAir HFA] 90 mcg/actuation HFA aerosol inhaler 2 puff inhalation Q6H PRN (Reason: shortness of breath or wheezing) Qty: 8.5 2RF esomeprazole magnesium [Nexium] 20 mg capsule,delayed release(DR/EC) 20 mg PO DAILY lisinopril 5 mg tablet 10 mg PO DAILY Qty: 90 3RF levothyroxine 50 mcg tablet See Rx Instructions .ROUTE .COMPLEX Qty: 90 3RF Dose Instruction: Take 1 tablet by mouth once daily Rx Instructions: Take 1 tablet by mouth once daily Trelegy Ellipta 100-62.5-25 mcg blister with device 1 inh inhalation DAILY Qty: 60 6RF lovastatin 10 mg tablet See Rx Instructions .ROUTE .COMPLEX Qty: 90 2RF Dose Instruction: TAKE 1 TABLET BY MOUTH ONCE DAILY AT NIGHT Rx Instructions: TAKE 1 TABLET BY MOUTH ONCE DAILY AT NIGHT gabapentin 300 mg capsule See Rx Instructions .ROUTE .COMPLEX Qty: 180 3RF Dose Instruction: TAKE 2 CAPSULES BY MOUTH THREE TIMES DAILY Rx Instructions: TAKE 2 CAPSULES BY MOUTH THREE TIMES DAILY citalopram 10 mg tablet 10 mg PO DAILY Qty: 30 11RF azelastine 137 mcg (0.1 %) aerosol,spray 1 spray intranasal BID PRN (Reason: allergies) Rx Instructions: administer into each nostril fluticasone propionate 50 mcg/actuation spray,suspension 1 spray intranasal .Q12HRS PRN (Reason: allergies) Rx Instructions: SHAKE LIQUID AND USE 1 SPRAY IN EACH NOSTRIL EVERY 12 HOURS Trelegy Ellipta 100-62.5-25 mcg blister with device 100 INHALATION hydrocodone-acetaminophen 5-325 mg tablet 1 - 2 tab PO .Q4-6H Qty: 40 0RF Discharge Orders: Discharge ED (Routine); Ordered 07/23/25 Ordered By: Tabby Perez Referrals: Joshua Murray MD [Primary Care Provider, Family Practice] Discharge Diet: Usual diet Discharge Activity: Limit activity as instructed Patient Instructions: Emphysema (ED), Pneumothorax, Patient Portal & Kathryn Instru ctions Activity Restrictions/Additional Instructions: - You have lung blebs associated with emphysema in the upper part of your lungs. Please do not smoke. This will affect your surgery and you will not heal properly. Nicotine pouches, gum is a better idea, and if needed vape. - Follow-up with your Dr. Mchugh as scheduled. -Methocarbamol/Robaxin muscle relaxers at your pharmacy. - You will need a follow-up chest x-ray in 1 week, to review with your primary care physician. In the morning, set an alarm, call your primary care physician for a follow-up and two-view chest x-ray next week. - Return to ED with worsening pain. -Pulmonary nodules are to be assessed with a new CT through your primary care physician in 6 months. This would be due near [facility]. - Do not be feeding your animals or carrying anything until Dr. Mchugh removes your weight restrictions. Print Language: Croatian Coding Level of Care Code ED Bottle Capping Machine Operator for Sheldon Madera
[2025-07-23 18:03] VITALS: BP 166/82; PULSE 60; O2SAT 98
--- NOTE | 2025-07-23 18:07 | CTR_ITS ---
PROCEDURE INFORMATION: Exam: CT Cervical Spine Without Contrast Exam date and time: 07/23/2025 6:16 PM Age: 49 years old Clinical indication: Injury or trauma; Other: Neck was jolted; PT arrives pov C/O neck pain. PT states he had neck/back surgery with Dr cruz here yesterday and jerked suddenly today while outside. PT C/O pain in back of neck radiating down R side. ; Additional info: Jolted injury, c7/t1 neck surgery yesterday, please obtain t1 TECHNIQUE: Imaging protocol: Computed tomography of the cervical spine without contrast. Radiation optimization: All CT scans at this facility use at least one of these dose optimization techniques: automated exposure control; mA and/or kV adjustment per patient size (includes targeted exams where dose is matched to clinical indication); or iterative reconstruction. COMPARISON: MR cervical spin wo con* [id number] 06/20/2025 8:34 AM RADIATION DOSE METRICS: Total DLP (mGy-cm): 162.57 FINDINGS: Bones: There is 2.5 mm of anterolisthesis of C7 on T1 unchanged. The vertebral body heights are maintained. There are left-sided hemilaminectomy postoperative changes C6-C7. There is soft tissue gas present near the operative site. The craniocervical junction is intact. There are multilevel degenerative changes present similar to the comparison MRI. No acute appearing displaced fracture seen. There is a chronic appearing fracture of the hyoid bone. Lungs: There are small foci of gas near the right lung apex possibly in the pleural space for example on series 7, image 27. There is biapical lung scarring present. Soft tissues: Soft tissues are unremarkable as visualized. CT/CT cervical spin wo con* [id number] IMPRESSION: No acute cervical spinal fracture identified. There are tiny foci of air in the region of the right apical pleural space suspicious for a tiny pneumothorax. Recent appearing left-sided hemilaminectomy change C6-C7.
[2025-07-23] MEDS: orphenadrine 30 mg/mL Inj 2 mL 60 MG IM (18:10)
--- NOTE | 2025-07-23 18:49 | CTR_ITS ---
PROCEDURE INFORMATION: Exam: CT Chest Without Contrast; Diagnostic Exam date and time: 07/23/2025 7:03 PM Age: 49 years old Clinical indication: Injury or trauma; Other: Cervical spine jolted; PT arrives pov C/O neck pain. PT states he had neck/back surgery with Dr cruz here yesterday and jerked suddenly today while outside. Abn CT cspine suggesting pneumothorax. ; Additional info: Abnormal CT cervical spine suggesting pneumothorax TECHNIQUE: Imaging protocol: Diagnostic computed tomography of the chest without contrast. Radiation optimization: All CT scans at this facility use at least one of these dose optimization techniques: automated exposure control; mA and/or kV adjustment per patient size (includes targeted exams where dose is matched to clinical indication); or iterative reconstruction. COMPARISON: CT chest abdpel w/*[id number] 10/09/2024 7:31 PM RADIATION DOSE METRICS: Total DLP (mGy-cm): 293.38 FINDINGS: Lungs: Mild areas of reticulonodular apical scarring. A few flecks of right apical pleural air are of uncertain significance. Mild areas of upper lung paraseptal emphysema. Mild COPD. Minor areas of bibasilar atelectasis or scarring. Few minute right lung nodules measure up to about 7 mm. Pleural spaces: There is no sizeable pneumothorax identified. Heart: Tiny left pericardial cyst of doubtful significance. Coronary arteries: No evidence of significant coronary artery calcification. Lymph nodes: No bulky mediastinal or hilar lymphadenopathy noted. Vasculature: No acute finding noted. No aortic aneurysm. Bones/joints: Lower cervical spine postop change. Soft tissues: Right pleural area air. Posterior neck air. Postop appearance. CT/CT chest wo con [id number] IMPRESSION: 1. No acute chest trauma identified. 2. There is evidence of recent cervical spine surgery, detailed on the same-day CT cervical spine. Adjacent areas of air are probably due to postop air, including near the right pleura. There is no actual pneumothorax identified. 3. Chronic lung findings above. A few small lung nodules may be reassessed in six-months. COMMENTS: The presence of pulmonary emphysema on CT is an independent risk factor for lung cancer. In the absence of a history or active diagnosis of lung cancer, it is recommended that this patient with emphysema be evaluated for enrollment in a low dose CT lung cancer screening program. REFERENCES: Julianna Barrett et al. Guidelines for Management of Incidental Pulmonary Nodules Detected on CT Images: From the Fleischner Society 2017. Radiology. 2017;284(1):228-243.
--- OUTSIDE RECORDS SUMMARY | 2025-07-23 18:53 | XMS_ITS | Clinical Summary ---
Author Organization [facility] Address [address] 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 Gender Identity Not on file Sexual Orientation Not on file Last Filed Vital Signs Vital Sign Reading Time Taken Comments Blood Pressure 115/42 07/23/2011 9:51 AM CDT Pulse 61 07/23/2011 9:51 AM CDT Temperature - - Respiratory Rate - - Oxygen Saturation 99% 07/23/2011 9:51 AM CDT Inhaled Oxygen Concentration - - Weight 68 kg (150 lb) 07/23/2011 9:51 AM CDT Height 190.5 cm (6' 3 ) 07/23/2011 9:51 AM CDT Body Mass Index 18.75 07/23/2011 9:51 AM CDT Plan of Treatment Health Maintenance Due Date Last Done Comments DTAP/TDAP/TD VACCINES (1 - Tdap) 1993 HEPATITIS B VACCINES (1 of 3 - 19+ 3-dose series) 11/04 COLORECTAL SCREENING 2019 Colorectal Cancer Screening 2019 FIT-DNA Q 3 years 2019 FIT/FOBT Q 1 year 2019 Flex Sig/CT Colonography Q 5 years 2019 ZOSTER VACCINE (1 of 2) 2024 INFLUENZA VACCINE (#1) 2025 Insurance [facility] CIGNA DENTAL PPO
--- OUTSIDE RECORDS SUMMARY | 2025-07-23 18:53 | XMS_ITS | Patient Health Record ---
Author Organization [facility] Address [address] [place] [address] Care Team Providers Care Dietary Worker Name Role Phone SYLVAIN Oconnor APRN, Larry Primary Care Provider Eduin Brown Unavailable [phone] Bobo Borrero Unavailable Unavailable Reason For Referral No Information Medications Medication SIG (Take, Route, Frequency, Duration) Notes Start Date End Date Status Albuterol Sulfate 108 (90 Base) MCG/ACT Aerosol Powder Breath Activated 1 puff as needed Inhalation every 4 hrs Active Piroxicam 20 MG Capsule 1 capsule with f ood Orally Once a day Active HYDROcodone-Acetaminophen 10-325 MG Tablet 1 tablet as needed Orally every 6 hrs Active Gabapentin 300 MG Capsule 1 capsule Oral ly Once a day Active tiZANidine HCl 4 MG Tablet 1 tablet as n eeded Orally Three times a day Active Anoro Ellipta 62.5-25 MCG/INH Aerosol Powder Breath Activated 1 puff Inhalation Once a day Active Azelastine-Fluticasone 137-50 MCG/ACT Suspension 1 spray in each nostril Nasally Twice a day Active Social History Social History Depression Screening Social Info Question Answer Notes PHQ-9 Little interest or p ludwin in doing things Nearly every day Feeling down, depressed, or hopeless Nearly ever y day Trouble falling or staying a sleep, or sleeping too much Nearly every day Feeling tired or having little energy Nearly lucille ry day Poor appetite or overeating Nearly every day Feeling bad about yourself, or that you are a failure, or have let yourself or your family down Nearly every day Trouble concentrating on thi ngs, such as reading the newspaper or watching television Nearly every day Thoughts that you would be b severiano off , or of hurting yourself in some way Nearly every day (Consider Suicide Assessment Risk) Drugs/Alcohol: Social Info Question Answer Notes Alcohol Screen (Audit-C) Did you have a drink containing alcohol in the past year? No Points 0 Interpretation Negative Drugs Have you used drugs other than those for medical reasons in the past 12 months? No Tobacco Use: Social Info Question Answer Notes xTobacco Use/Smoking Are you a current lucille ry day smoker Additional Details Category Social Info Options Details Migrated Social History Migrated Social History Smoking Status : Current every day smoker , History of tobacco use : Current every day smoker Plan Of Treatment Pending Test Test Name Order Date MRI Cervical Spine w/o [id number] 2020 MRI Lumbar Spine w/o [id number] 03/03/20 MRI Thoracic Spine w/o Cont-[id number] 2020 Insurance Providers Payer Name Payer Address Payer Phone Subscriber Number Group Number Insured Name Patient Relationship to Insured Coverage Start Date Coverage End Date [facility] [employer] [address] [address] [place] [address] [id number] Gerry Frank Self - patient is the insured Medical (General) History Medical History History ICD Code chicken pox pneumonia arthritis back trouble high blood pressure hemorrhoids asthma anxiety COPD depression emphysema GERD hyperlipidemia hypothyroidism pancreatitis sleep apnea Surgical History Surgery Date(Month/Year) carpal tunnel release, right 2000 eye surgery 1979 tubes in ears 1979 throat and nose surgery 2019
[2025-07-23 20:00] VITALS: BP 150/76; PULSE 56; O2SAT 98
[2025-07-23 20:37] VITALS: BP 146/81; PULSE 59; O2SAT 98
== END 2025-07-23 20:38 | disposition home or self-care (01) ==
PROVIDERS: Emergency Provider Physician Assistant; PCP Family Medicine
DX: M54.2 Cervicalgia (principal); Z98.890 Other specified postprocedural states; Z91.199 Patient's noncompliance with other medical treatment and regimen due to unspecified reason; J43.9 Emphysema, unspecified; R91.1 Solitary pulmonary nodule; F17.210 Nicotine dependence, cigarettes, uncomplicated; E78.5 Hyperlipidemia, unspecified; J44.9 Chronic obstructive pulmonary disease, unspecified
CPT/HCPCS: 71250; 72125; 96372; 99284; J1885; J2360

== ENCOUNTER 2025-08-13 07:18 | Outpatient (CLI) | payer OTHER, SELFPAY ==
--- NOTE | 2025-08-13 07:30 | CT_ITS ---
WS: [id number] CT chest wo con [id number] HISTORY: Lung nodule TECHNIQUE: Axial imaging performed through the thorax. Coronal and sagittal reformats are submitted. All CT scans at [facility] use at least one of these dose optimization techniques: automated exposure control; mA and/or kV adjustment per patient size (includes targeted exams where dose is matched to clinical indication); or iterative reconstruction. CONTRAST: None DLP: 284.61 mGy.cm COMPARISON: 07/23/2025, 10/09/2024, 11/14/2020 Lungs and central airway: Mild pulmonary hyperexpansion. Biapical pleural fibrosis. There are a few very tiny nodules at the RIGHT apex. Fissural nodule along the RIGHT minor fissure measures 6.8 mm and is stable. 3 mm nodule RIGHT middle lobe unchanged. No new or enlarging pulmonary nodules or masses. No pneumonia. Pleura: Normal. No pleural effusion. Heart and pericardium: Normal size heart with no pericardial effusion. Mediastinum and sonny: No mediastinum or hilar adenopathy. Vessels: Very mild atherosclerosis aorta. Normal size pulmonary artery. Chest wall and lower neck: No soft tissue masses. Upper abdomen: No adrenal mass. There are scattered hypodensities within the liver which were also present on 10/09/2024 and 12/26/2023. Osseous structures: No destructive process. CT/CT chest wo con [id number] IMPRESSION: 1. No new pulmonary mass or nodule. No nodule increasing in size. Micronodules in the RIGHT upper and RIGHT middle lobe. No additional imaging necessary. Nod ules are stable since 2020. 2. 6.8 mm RIGHT minor fissure nodule. These nodules are typically benign. No c hange since 11/14/2020. 3. No pathologically enlarged lymph nodes.
== END 2025-08-13 07:19 | disposition home or self-care (01) ==
LOC: RAD 07:18
PROVIDERS: PCP Family Medicine; Visit Provider Family Medicine
DX: R91.8 Other nonspecific abnormal finding of lung field (principal)
CPT/HCPCS: 71250